=== PATIENT | male | born 1935 | race Caucasian/White ===

== ENCOUNTER 2016-10-05 15:56 | Inpatient (IN) | payer MEDICARE, OTHER ==
--- NOTE | ~2016-10-05 | IDS ---
Interim Discharge Summary [facility] [address] [place]. [address] NAME: EDDIE DELUNA JR : 33 STATUS : [facility]M [facility]#: [id number] AGE: 80 ADM/REG DATE : 10/05/16 MR#: [id number] REPORT SERV DATE: 10/19/16 DICTATED BY: MARCIAL CARDOZO. DATE: 10/19/16 REPORT STATUS : Draft TRANSCRIBED BY: MODRobin DATE: 10/19/16 ADMISSION DATE: 10/05/2016 DISCHARGE DATE: ADDENDUM: Dr. Eddie Escobar. CONSULTING PHYSICIANS: 1. Dr. Quiñones for Cardiology. 2. for Neurology. INTERIM DIAGNOSES: 1. Acute hypoxic and hypercapnic respiratory failure, now intubated again. 2. Seizure disorder. 3. Encephalopathy with history of dementia. 4. Old cerebrovascular accident. 5. Familial tremors. 6. Atrial fibrillation with failed cardioversion. 7. Hypertension. 8. Acute kidney injury on chronic kidney disease 3, status post septic shock, status post flu, status post superimposed bacterial pneumonia. 9. Benign prostatic hyperplasia. 10.Depression. Since my discharge summary done yesterday, the patient had a period of unresponsiveness and was gasping for breath. The patient got an ABG, which shows a pH of 7.14 with pCO2 of 75, and PO2 of 75 in 100% non-rebreather mask. We got Critical Care involved and the patient was intubated and transferred to the CCU. The patient will be continued to be followed by Neurology and further management care of Critical Care people. NIRAV/CARLENE Marcial Cardozo M.D. / [id number] CC: Marcial Cardozo M.D.
--- NOTE | ~2016-10-05 | DS ---
Discharge Summary [facility] [address] [place]. [address] NAME: JO DELUNA JR : 33 STATUS : ADM IN PAT#: [id number] AGE: 81 ADM/REG DATE : 10/05/16 MR#: [id number] REPORT SERV DATE: 10/30/16 DICTATED BY: ELIZA HAYDEN DATE: 10/30/16 REPORT STATUS : Draft TRANSCRIBED BY: MODL DATE: 10/30/16 ADMISSION DATE: 10/05/2016 DISCHARGE DATE: 10/30/2016 DISCHARGE DIAGNOSES: 1. Acute respiratory failure times twice, has been intubated and extubated twice. 2. Acute diastolic dysfunction. 3. Atrial fibrillation. The patient is on rate control and Xarelto use. 4. Dementia with behavior disturbance. 5. Chronic kidney disease, III. 6. Hypertension. 7. Hard of hearing. 8. Obesity. CONSULTANTS: 1. Gibson Quiñones M.D. 2. [facility]. [facility]. [facility]. 4. Dr. Cunningham. HISTORY OF PRESENT ILLNESS: This is an 81-year-old male patient, initially came to the hospital with confusion and agitation, short of breath with the finding of a nonsustained ventricular tachycardia at the very beginning of the September. HOSPITAL COURSE: Please see dictated interim discharge summary done by Dr. Dimas, Dr. Tushar Edwards, and Dr. Paulson. Briefly, I took care of this patient on three days of discharge. The patient was having a prolonged hospitalization with recurrent respiratory failure. He initially came to the hospital with flu-like symptoms. The pneumonia was treated, improved, and also at that time, he was found to be in hypoxic and hypercapnic respiratory failure. He has gone to the ICU twice and was found to have atrial fibrillation with rapid ventricular rate. Next time, he was also having a respiratory failure due to the seizures. The patient stayed in the ICU and extubated and finally transferred out of the ICU. Transfer date was October 23. At that time, the working diagnosis was hypoxic respiratory failure, seizures, and atrial fibrillation with heart failure. After he came out of the ICU, he remains in a quite stable condition. Dr. Quiñones has been following this patient for diastolic dysfunction with right-sided ventricular failure. He has been on Bumex twice a day dosing and his renal function has been stable. Mainly, he is not very cooperative, but he was not having any acute issues for the last four days that I have taken care of this patient. After sometime, intermittent agitation issue, but he was treated with a very very small dose of Ativan and after that, twice a trip to the ICU with respiratory failure, will require mechanical ventilation, patient's family has been informed and discussed regarding this patient's end of care and the code status. The patient has been DNR. He remained on oxygen supply. Discharge Summary [address] [place]. [address] NAME: JO DELUNA JR : 33 STATUS : ADM IN PAT#: [id number] AGE: 81 ADM/REG DATE : 10/05/16 MR#: [id number] REPORT SERV DATE: 10/30/16 DICTATED BY: ELIZA HAYDEN DATE: 10/30/16 REPORT STATUS : Draft TRANSCRIBED BY: MODRobin DATE: 10/30/16 Overall, he had a stable hospitalization. However, the patient has a very poor prognosis with multiorgan failure and a worsening dementia with behavior disturbance. I discussed with the [id number] it is confirmed. Overall, the patient maximized inpatient benefit, will be discharged to nursing facility for rehab. Again, he has a very poor prognosis. DISCHARGE MEDICATIONS: 1. Cogentin 0.25 mg once in the morning time, 0.5 mg once at nighttime. 2. Aricept 10 mg once in the morning time. 3. Digoxin 0.125 mg once a day. 4. Colace 100 mg once a day. 5. Bumex 1 mg twice a day. 6. Xarelto 10 mg twice once a day. 7. Flomax 0.4 mg once a day. 8. Brovana. 9. Pulmicort. 10.DuoNeb. 11.Seroquel was decreased to 6.25 mg once at nighttime. 12.Ultram was discontinued. 13.Melatonin 6 mg once a day. 14.Ativan as needed. 15.Catapres patch once a week. DISPOSITION: The patient is discharged to the nursing facility. Again, he has a very poor prognosis. TIME SPENT: More than 35 minutes on discharge coordination and education. EKL/MODL Eliza Hayden M.D. / [id number] CC: Denisha Fisher PAUL DANIEL
--- NOTE | ~2016-10-05 | OP ---
Record Of Operation [facility] [address] [place]. [address] NAME: JO DELUNA JR : 34 STATUS : ADM IN PAT#: [id number] AGE: 80 ADM/REG DATE : 10/05/16 MR#: [id number] REPORT SERV DATE: 10/19/16 DICTATED BY: TONA PAULSON IV DATE: 10/19/16 REPORT STATUS : Draft TRANSCRIBED BY: MODL DATE: 10/19/16 DATE OF PROCEDURE: 10/19/2016 ENDOSCOPIC INTUBATION NOTE PREOPERATIVE DIAGNOSIS: Hypercapnic hypoxemic respiratory failure. POSTOPERATIVE DIAGNOSIS: Hypercapnic hypoxemic respiratory failure. PROCEDURE: Laryngoscopic intubation with ventilator setup and placement of an orogastric tube. INDICATIONS: Hypercapnic hypoxemic respiratory failure despite 100% FiO2. CONTRAINDICATIONS: None. CONSENT: No consent is obtained to lifesaving procedure. The patient is a full code. FERRY HAND: Tona Paulson M.D. METHOD: The patient was being Ambu bag ventilated when I entered the room. I assumed that responsibility. The patient was tachypneic at that time. All equipment was made available, and the patient was brought to the head of the bed. The O2 saturations improved in the 94% range with the Ambu bag ventilation. The patient was given 20 mg of etomidate because of persistent tone in his jaw muscles. Once the patient was relaxed, a curved laryngoscopic blade was used to visualize the patient's vocal cords. On first pass, an #8 endotracheal tube was advanced through the cords without difficulty under direct visualization. CO2 indicator had appropriate change. There were bilateral breath sounds. The tube was secured at 23 cm. Once the tube was secured, I attempted to place an orogastric tube, it was unsuccessful on the floor, the one was placed in the ICU upon arrival. There was no blood loss with initial; however, there was minimal blood suctioned from his mouth after the tube was secured. There was no persistent bleeding. Estimated blood loss during this time period was about less than 5 mL. The patient otherwise tolerated the procedure well. VENTILATOR SETTINGS: CMV, tidal volume of 550 mL, rate of 12, FiO2 of 100%, PEEP of 5. NM/MODL Tona Paulson IV, M.D. / [id number] CC: Record Of Operation [facility] [address] [place] [address] NAME: JO DELUNA JR : 34 STATUS : ADM IN PAT#: [id number] AGE: 80 ADM/REG DATE : 10/05/16 MR#: [id number] REPORT SERV DATE: 10/19/16 DICTATED BY: TONA PAULSON IV DATE: 10/19/16 REPORT STATUS : Draft TRANSCRIBED BY: MODL DATE: 10/19/16 Tushar Edwards M.D.
--- NOTE | ~2016-10-05 | OP ---
Record Of Operation [facility] [address] [place] [address] NAME: JO DELUNA JR : 34 STATUS : ADM IN PAT#: [id number] AGE: 80 ADM/REG DATE : 10/05/16 MR#: [id number] REPORT SERV DATE: 10/07/16 DICTATED BY: DALLAS WHEATLEY DATE: 10/07/16 REPORT STATUS : Draft TRANSCRIBED BY: MODL DATE: 10/07/16 DATE OF PROCEDURE: PROCEDURE PERFORMED: Left subclavian central venous line placement. INDICATION: Acute hypercapnic hypoxic respiratory failure with hypotension and shock. PROCEDURE IN DETAIL: Procedure was performed emergently in the medical intermediate care unit. The left chest was prepped with chlorhexidine. The patient was completely draped. An arrow triple-lumen kit was used and a left subclavian vein was entered without any difficulty. The triple-lumen catheter was introduced over a guidewire and lines were flushed and catheter was secured in place. The patient tolerated the procedure well. There were no immediate complications. Postprocedure, chest x-ray will be performed for placement. /CARLENE aDllas Wheatley M.D. / [id number] CC: Helen Stevens M.D.
--- NOTE | ~2016-10-05 | IDS ---
Interim Discharge Summary [facility] [address] [place]. [address] NAME: JO DELUNA JR : 34 STATUS : ADM IN PAT#: [id number] AGE: 80 ADM/REG DATE : 10/05/16 MR#: [id number] REPORT SERV DATE: 10/24/16 DICTATED BY: TONA PAULSON IV DATE: 10/23/16 REPORT STATUS : Draft TRANSCRIBED BY: MODRobin DATE: 10/23/16 ADMISSION DATE: 10/05/2016 DISCHARGE DATE: DATE OF TRANSFER TO THE ICU: 10/19/2016. DATE OF TRANSFER BACK TO THE FLOOR: 10/23/2016. DIAGNOSES: At the time of transfer: 1. Hypoxemic respiratory failure and respiratory distress requiring intubation. 2. Transient hypotension. 3. Diastolic heart failure. 4. Atrial fibrillation with rapid ventricular response. 5. Pulmonary infiltrates concerned possibly initially about pneumonia likely secondary to diastolic heart failure. 6. Seizures. 7. Adrenal insufficiency. 8. Dementia. 9. Chronic kidney disease, improved. 10.Electrolyte abnormalities. CONSULTANTS: There were no new consultants; however, Neurology and Cardiology continued to follow the patient throughout the ICU course. PROCEDURE: New procedure was an intubation. CURRENT MEDICATIONS: The patient is on Aricept 10 mg daily, Ativan 0.5 mg at bedtime, Bumex 1 mg twice a day, Cogentin 0.25 mg in the morning and 0.5 mg at bedtime, Colace 100 mg twice a day, Pulmicort 1 mg, and Brovana unit dose twice a day, DuoNeb every four hours while awake and q.4 hours as needed, Flomax 0.4 mg daily, Vimpat 100 mg b.i.d., Keppra 1000 mg b.i.d., potassium 20 mEq daily, digoxin 0.125 mg daily, Lopressor 5 mg every 6 hours, Neurontin 300 mg three times a day, nitroglycerin paste 1 inch q.6 hours, Protonix 40 mg p.o. daily, Seroquel 50 mg at bedtime, hydrocortisone 50 mg q.8 hours, and B12 daily. HOSPITAL COURSE: The patient with a rapid response on the morning of the 10/19/2016 with respiratory distress. He was saturating in the 70% and 80% range on 100% non-rebreather. He underwent intubation and moved to the ICU. He initially had some hypotensive for which he was placed transiently on Levophed. This improved over the ensuing 24 hours, and he was able to be weaned off. When his pressure was improved, we re-initiated Lopressor with improvement of his heart rate. There was further increases in the IV dose and in addition of digoxin with clinical improvement. Because of his worsening renal insufficiency, his Xarelto was held, and he was placed on heparin drip, which has been re-initiated on Xarelto. He was placed on vancomycin and Zosyn for possible healthcare-associated pneumonia. Cultures were all negative and procalcitonin level never modesta for which antibiotics were discontinued after 48 hours. We had discussions with family members, and the patient was made a DNR soon after arrival in the ICU. He had underwent daily weaning trials and was Interim Discharge Summary [address] [address] NAME: JO DELUNA JR : 34 STATUS : ADM IN [facility]#: [id number] AGE: 80 ADM/REG DATE : 10/05/16 MR#: [id number] REPORT SERV DATE: 10/24/16 DICTATED BY: TONA PAULSON IV DATE: 10/23/16 REPORT STATUS : Draft TRANSCRIBED BY: CARLENE DATE: 10/23/16 successfully extubated on the 10/22/2016 with plan not to re-intubate. He is actually clinically done fairly well. Because of a low cortisol level of 10, he was placed on stress dose steroids after his decompensation, and those are slowly being weaned. His kidney disease has stabilized and his infiltrates have improved with control of his atrial fibrillation and gentle diuresis. It was felt that he was stable for transfer back to the floor. BNP proving from 931 to 476. Orders were written on the with hospitalist to resume primary care. SMITHA/CARLENE Tona Paulson IV, M.D. / [id number] CC: Tushar Edwards M.D.
--- NOTE | ~2016-10-05 | EEG ---
Electroencephalogram [facility] [address] [place]. [address] NAME: JO DELUNA JR : 34 STATUS : ADM IN PAT#: [id number] AGE: 80 ADM/REG DATE : 10/05/16 MR#: [id number] REPORT SERV DATE: 10/07/16 DICTATED BY: DATE: REPORT STATUS : Draft TRANSCRIBED BY: MODL DATE: 10/07/16 NEUROLOGY EEG REPORT CLINICAL INDICATION: Shaking, unresponsive state. DESCRIPTION: This EEG was obtained using 10/20 electrode placement system. During the EEG study, the patient was noted to have EEG contaminated by muscle artifact. The patient was noted to have generalized slowing in background activity with predominant occipital rhythm of roughly 4 to 5 hertz, otherwise the patient was not noted to have electrographic seizure during the EEG study. Photic stimulation was performed. No clear photic driving response was seen. Hyperventilation was not performed secondary to the patient's intubation status secondary to the patient being intubated. The patient remains in comatose state during the entire EEG study. During the EEG study, one episode of shaking was captured with no underlying electrographic seizure or brain wave activity changes. No other focal abnormality was noted. No seizure activity was seen during the EEG study. INTERPRETATION: This EEG study obtained entirely during comatose state may be considered abnormal secondary to generalized slowing in the theta range. The patient's EEG study at this time is contaminated with muscle artifact. However no electrographic seizure was seen. No seizure activity or seizure discharge. No focal abnormality was noted. One episode of shivering was captured during the EEG study with no corresponding electrographic seizures or EEG changes. Clinical correlation is recommended. [facility]/MOD Zachery Benavides MD / [id number] CC: Denisha Kellogg
--- NOTE | ~2016-10-05 | CN ---
Consultation Report [facility] [address] [place]. [address] NAME: JO DELUNA JR : 34 STATUS : ADM IN PAT#: [id number] AGE: 80 ADM/REG DATE : 10/05/16 MR#: [id number] REPORT SERV DATE: 10/07/16 DICTATED BY: DATE: REPORT STATUS : Draft TRANSCRIBED BY: MODL DATE: 10/07/16 NEUROLOGY CONSULTATION DATE OF CONSULTATION: 10/07/2016 REASON FOR CONSULT: New onset seizure. HISTORY OF PRESENT ILLNESS: This is an 80-year-old male who presented to [facility] on 10/05/2016 secondary to acute confusion with the patient's family reports the patient was noted to have confusion symptom with disorientation, delusional thoughts, agitation. On 10/03/2016, the patient's baseline, family denies cognitive difficulties and denies any functional difficulties. The patient, the week prior to hospitalization, was noted to have cardiac arrhythmia for which the patient was converted by Cardiology. Since then the patient was noted to have increasing confusion since October 03, 2016, that has not had any significant improvement. Overnight the patient was noted to have hypotension and atrial fibrillation as well as fever, required ICU transfer with the patient being on pressors to maintain blood pressure. The patient was diagnosed with flu and possible CHF exacerbation during the initial hospitalization, otherwise the patient's family reports the patient's daughter in-law was diagnosed with flu recently but otherwise no other sick contact was noted. The patient was noted to have recent change of cardiac medication but otherwise no other changes in his medications. The patient does not have any prior history of seizure and does not have any known family history of seizure according to family members. The patient, this morning, was noted to have shaking episodes, responding to Ativan but will recur. No clear tonic clonic jerk was otherwise noted. REVIEW OF SYSTEMS: Unable to be obtained secondary to the patient's current mental status. PAST MEDICAL HISTORY: Significant for atrial fibrillation, prior history of left cerebellar stroke, benign prostatic hypertrophy, apparent baseline history of dementia although family denies significant cognitive problems prior to the patient's acute confusion, history of peptic ulcer disease, anxiety, depression, neuropathy, Parkinson's disease, chronic kidney disease, urinary tract infection, glaucoma, varicose vein, and nephrolithiasis. ALLERGIES: THE PATIENT WAS NOTED TO HAVE ALLERGIES TO NONSTEROIDAL ANTI-INFLAMMATORY MEDICATIONS WELL TRAMADOL. SOCIAL HISTORY: The patient quit smoking 20 years ago. Denies alcohol or recreational drug usage. FAMILY HISTORY: Significant for heart disease, diabetes, and leukemia. No family history of seizure was otherwise noted. MEDICATIONS: The patient's baseline medications consist of Tylenol; Cogentin; Zebeta; Consultation Report [facility] [id number] [place]. [address] NAME: JO DELUNA JR : 33 STATUS : ADM IN PAT#: [id number] AGE: 80 ADM/REG DATE : 10/05/16 MR#: [id number] REPORT SERV DATE: 10/07/16 DICTATED BY: DATE: REPORT STATUS : Draft TRANSCRIBED BY: MODL DATE: 10/07/16 vitamin B12; Aricept; Flecainide; Neurontin; Ativan; Prilosec; Seroquel 75 mg p.o. at bedtime; Xarelto; Aldactone; Flomax; and Ultram. PHYSICAL EXAMINATION: VITAL SIGNS: Overnight, the patient was noted to have vital signs with T-max of 100.8, heart rate of 81 to 137, respirations of 14 to 28, and blood pressure of 48 to 181 over 28 to 106. GENERAL: The patient is well developed, well nourished, in no acute distress. CARDIOVASCULAR: Tachycardia was otherwise noted. No carotid bruits were auscultated. PULMONARY: Clear to auscultation bilaterally. NEUROLOGIC: The patient was comatose at the time of evaluation. The patient's Precedex was turned off earlier this morning. Otherwise, the patient is unresponsive, nonverbal, not following commands, intubated. Cranial nerves 2 through 12. Pupils pinpoint bilaterally with the patient noted to have no clear horizontal eye movement on oculocephalic maneuver. No [id number]-ue-[id number] response with the patient demonstrating corneal reflex and gag reflex. No clear grimace to noxious stimulation in bilateral jaws. The patient demonstrated no withdrawal grimace or posturing to noxious stimulation. During the examination, the patient started with generalized shaking. No tonic clonic jerking was observed during the evaluation. The patient otherwise was noted to have trace reflexes, downgoing toe on bilateral plantar reflexes. Coordination and gait were unable to be evaluated due to the patient's comatose state. LABORATORY STUDIES: Demonstrated white blood cell count of 5.1, hemoglobin of 11.6, hematocrit of 36.2, and platelet count of 179. Chemistry panel: Sodium 142, potassium 4.7, chloride 105, bicarb 25, BUN of 29, creatinine of 2.35, glucose of 119, and calcium was 7.8. The patient was noted to have ABG this morning of 7.28, pCO2 of 53, PO2 of 226, bicarb of 23.1, and O2 saturation of 99.4. CT scan of the brain obtained on 10/05/2016, demonstrated previous right frontal and right parietal stroke and old left cerebellar stroke. No acute process was otherwise noted. IMPRESSION: 1. Encephalopathy with symptoms of delusion and confusion since 10/03/2016. The patient was noted to be febrile with new onset seizure with the patient carrying dementia but no significant memory deficits according to the family members. Given the patient's new onset seizure and with persistent worsening encephalopathy, we will obtain stat EEG. We are recommending holding Xarelto and obtaining lumbar puncture by Radiology. Meanwhile we will cover the patient with vancomycin and Zosyn as well as acyclovir. 2. New onset seizure. So we will start the patient on Keppra 1000 mg IV q.12 hours as well as obtain stat EEG for evaluation. We will also obtain lumbar puncture. RECOMMENDATIONS: 1. Keppra 1000 mg IV b.i.d. 2. Stat EEG. 3. Procalcitonin level. 4. Vancomycin, pharmacy to dose. 5. Zosyn, pharmacy to dose. Consultation Report [address] [place]. [address] NAME: REGIJO HANANE GONZALEZ : 33 STATUS : ADM IN [facility]#: [id number] AGE: 80 ADM/REG DATE : 10/05/16 MR#: [id number] REPORT SERV DATE: 10/07/16 DICTATED BY: DATE: REPORT STATUS : Draft TRANSCRIBED BY: MODL DATE: 10/07/16 6. Acyclovir 10 mg/kg IV t.i.d. 7. Lumbar puncture by Radiology. 8. CSF for protein, glucose, cell count with differential, HSV PCR, cryptococcal antigen, bacterial culture, Gram stain. 9. Solu-Medrol 125 mg IV b.i.d., first dose prior to IV antibiotics. 10.We are recommending holding Xarelto for lumbar puncture. CCH/MODL Zachery Benavides MD / [id number] CC: Denisha Kellogg
--- NOTE | ~2016-10-05 | CN ---
Consultation Report [facility] [address] [place]. [address] NAME: JO DELUNA JR : 34 STATUS : ADM IN PAT#: [id number] AGE: 80 ADM/REG DATE : 10/05/16 MR#: [id number] REPORT SERV DATE: 10/08/16 DICTATED BY: JAH CUNNINGHAM DATE: 10/08/16 REPORT STATUS : Draft TRANSCRIBED BY: MODL DATE: 10/08/16 INFECTIOUS DISEASE CONSULTATION DATE OF CONSULTATION: 10/08/2016 REASON FOR CONSULTATION: Sepsis. HISTORY OF PRESENT ILLNESS: This is an 80-year-old man with a past medical history notable for atrial fibrillation, for which he underwent cardioversion around 09/29. He also has a history of strokes and some dementia, although remains fairly active and still drives. There is a history of chronic kidney disease and apparently Parkinson disease. The patient was admitted to the hospital on 10/05 after presenting to the emergency department that afternoon with progressively worsening mental status. About a week ago, he had started developing some cough and shortness of breath and actually, his osgvrdhi-pa-pkn had been diagnosed with influenza also. He then became progressively more delirious and agitated and in the emergency department, was found to have initially a white blood cell count of 4500, mildly elevated lactate level, and had a positive screen for influenza A. He did develop a fever up to 100.8 on 10/06. He was treated with Tamiflu. His initial chest x-ray was negative and he also had a CT scan of the abdomen and pelvis, which was unremarkable including the lung bases. A CT scan of the brain just showed old infarcts. The patient though worsened overnight on 10/06 and was transferred to the intensive care unit and was intubated and had fevers up to 101.5 yesterday. He also required institution of pressors. The patient was evaluated by Neurology and underwent lumbar puncture yesterday, which showed no evidence of a central nervous system infection. Antibiotics were broadened to include vancomycin and Zosyn yesterday. He remains on the ventilator, FiO2 of 40%. The patient was given Solu-Medrol yesterday, but this was stopped this morning. His procalcitonin yesterday was 1.10. The patient's ssstlhxk-pn-yto says that he received influenza vaccination when he underwent the cardioversion at the end of August. PAST MEDICAL HISTORY: In addition to the above is notable for peptic ulcer disease, gastroesophageal reflux, glaucoma and surgeries to include multiple orthopedic procedures and partial colectomy for a benign tumor and a TURP and right carotid endarterectomy. ALLERGIES: NONSTEROIDAL ANTI-INFLAMMATORY DRUGS AND TRAMADOL. PRESENT MEDICATIONS: In addition to the antibiotics mentioned include Cogentin, vitamin B12, Aricept, Neurontin, Ativan, Protonix, Seroquel, Flomax, and Keppra (I should note the patient was felt to have some seizures on the day that he deteriorated and this is what initially prompted the Neurology evaluation). SOCIAL HISTORY: As above. He has a past smoking history. Nondrinker. He lives with his . Son and cgtjeyzd-mu-ify live across the street. FAMILY HISTORY: Notable for diabetes and heart disease. Consultation Report [address] [place]. [address] NAME: JO DELUNA JR : 34 STATUS : ADM IN [facility]#: [id number] AGE: 80 ADM/REG DATE : 10/05/16 MR#: [id number] REPORT SERV DATE: 10/08/16 DICTATED BY: JAH CUNNINGHAM DATE: 10/08/16 REPORT STATUS : Draft TRANSCRIBED BY: CARLENE DATE: 10/08/16 REVIEW OF SYSTEMS: As outlined above. Otherwise, negative or difficult to obtain at the present time. PHYSICAL EXAMINATION: VITAL SIGNS: The patient weighs 98 kg. He is presently afebrile. He has had hypotension earlier this morning and is back on vasopressin after being off pressors earlier in the evening. Pulse is 112. HEAD AND NECK: Other than his intubated status is unremarkable, although I cannot examine the oral cavity. LUNGS: Actually fairly clear to auscultation anteriorly and laterally. CARDIAC: Shows a tachycardic rate and regular rhythm. Normal S1 and S2. No murmur, gallop, or rub. CHEST: Reveals a left subclavian central line placed early on 10/07, covered by dressing. ABDOMEN: Nondistended, quiet, soft and no evident tenderness to palpation or masses. EXTREMITIES: Reveal a PICC line in the right upper extremity. No rash. No edema. SKIN: Without rash elsewhere. LABORATORY STUDIES: White blood cell count today is 17.8 after steroids yesterday, but with 43% bands; hemoglobin 11.4; platelets 156. Creatinine 2.52, it was 2.05 on admission, baseline appears to be around 1.4 to 1.6. Albumin 2.4, liver function tests normal. Most recent blood gas shows a pH of 7.31, pCO2 of 41, PO2 of 80 on 50% FiO2. Lumbar puncture negative as mentioned above. Microbiology studies show that his admission urinalysis was negative. Influenza screen positive for influenza A. Sputum Gram stain from yesterday after intubation shows greater than 100 white blood cells, many gram-positive cocci in pairs. Culture has some very early growth of a beta-hemolytic colony, possibly strep. Blood cultures are negative to date. Serial chest x-rays are reviewed. Today's chest x-ray shows minimal bibasilar atelectasis, left greater than right, and pulmonary vascular prominence. IMPRESSION: Severe sepsis secondary to acute influenza A with possible secondary bacterial infection. His chest x-rays are not that impressive, but he could be developing a bacterial pneumonia, and the sputum Gram stain is purulent and culture does have very early growth of strep or staph organism most likely. I do not see any other likely source of a secondary bacterial infection. PLAN: 1. Pending sputum culture results, we will continue the vancomycin and Zosyn along with Tamiflu. 2. We will discontinue the subclavian line when it is no longer needed and discussed this with the nursing staff. /MODL Consultation Report [place] [id number] [facility] [place]. [address] NAME: JO DELUNA : 34 STATUS : ADM IN [facility]#: [id number] AGE: 80 ADM/REG DATE : 10/05/16 MR#: [id number] REPORT SERV DATE: 10/08/16 DICTATED BY: JAH CUNNINGHAM DATE: 10/08/16 REPORT STATUS : Draft TRANSCRIBED BY: MODRobin DATE: 10/08/16 Jah Cunningham M.D. / [id number] CC: Denisha Kellogg Paul Daniel
--- NOTE | ~2016-10-05 | IDS ---
Interim Discharge Summary [facility] [address] [place]. [address] NAME: EDDIE DELUNA JR : 34 STATUS : ADM IN PAT#: [id number] AGE: 80 ADM/REG DATE : 10/05/16 MR#: [id number] REPORT SERV DATE: 10/18/16 DICTATED BY: MARCIAL CARDOZO DATE: 10/18/16 REPORT STATUS : Draft TRANSCRIBED BY: MODL DATE: 10/18/16 ADMISSION DATE: 10/05/2016 DISCHARGE DATE: PRIMARY CARE PHYSICIAN: Dr. Eddie Escobar. CONSULTING PHYSICIAN: Dr. Ishmael BELTRE for Cardiology. Dr. Radha Leal for Neurology. ID, Renal and Critical Care have signed off. INTERIM DIAGNOSES: 1. Seizures. 2. Encephalopathy with history of dementia, old cerebrovascular accident. 3. Familial tremors. 4. Acute hypoxic and hypercapnic respiratory failure, status post extubation. 5. Atrial fibrillation with failed cardioversion. 6. Hypertension. 7. Acute kidney injury on chronic kidney disease 3. 8. Status post septic shock. 9. Status post flu. 10.Status post superimposed bacterial pneumonia. 11.Benign prostatic hypertrophy. 12.Depression. DIAGNOSTIC EXAMS: MRI of the brain showing moderate atrophy; chronic white matter ischemic change; small cortical infarcts in the right frontal lobe, occipital lobe, parietal lobe; but no acute infarct or hemorrhage. Sinusitis and bilateral mastoid inflammation. Latest chest x-ray showing stable aeration, status post extubation; minimal residual atelectasis at the lung base. KUB, no evidence of acute abnormality within the abdomen. HOSPITAL COURSE: Please refer to the H and P done by Dr. Mosqueda on 10/06/2016, the interim discharge summary done by Dr. Dimas on 10/09/2016. Since the patient got transferred out of the intensive care unit, the patient has been having on and off confusion. According to the family, he has a baseline dementia and this is more or less how he is. He sometimes willingly not take his medication and he is impulsive. He is slowly being weaned off his oxygen, and he completed treatment for the possible superimposed bacterial pneumonia, and completed treatment for the flu. However, as we were trying to decrease the Keppra for a possible myoclonus, the patient had a witnessed seizure on his right upper extremity. The initial EEG did not show any seizures, and he got a second EEG, which has not been read. The patient was placed back on IV Keppra and has not been having any seizures anymore. Meanwhile, his p.o. intake has been erratic and we had to crush the medications and sneak it up to him. Because of this, he might not be getting his full dose of the metoprolol, and we have to supplement it through the IV. Meanwhile, ID and Critical Care have signed off, and we have Cardiology still helping us with the atrial fibrillation as he had failed cardioversion on this admission. Neuro initially signed off, but we reconsulted them for this, and they are still under investigation on the source of the seizures. Partner of [facility] will be following up the patient on Wednesday. Interim Discharge Summary [address] [address] NAME: EDDIE DELUNA JR : 34 STATUS : ADM IN [facility]#: [id number] AGE: 80 ADM/REG DATE : 10/05/16 MR#: [id number] REPORT SERV DATE: 10/18/16 DICTATED BY: MARCIAL CARDOZO DATE: 10/18/16 REPORT STATUS : Draft TRANSCRIBED BY: CARLENE DATE: 10/18/16 NIRAV/CARLENE Marcial Cardozo M.D. / [id number] CC: Deinsha Welch M.D.
--- NOTE | ~2016-10-05 | EEG ---
Electroencephalogram [place] [address] [place]. [address] NAME: JO DELUNA JR : 34 STATUS : ADM IN PAT#: [id number] AGE: 80 ADM/REG DATE : 10/05/16 MR#: [id number] REPORT SERV DATE: 10/19/16 DICTATED BY: LOC CANTU DATE: 10/19/16 REPORT STATUS : Draft TRANSCRIBED BY: MODL DATE: 10/19/16 LOCATION OF THE PATIENT: Room 7111. DESIGNATED REVIEWER: Loc Cantu MD. EEG NUMBER: [id number]. REASON FOR EEG: Episode of a seizure. The patient was given 2 mg of Ativan prior to the EEG. Right arm twitching and change in mental status. This study was reviewed and information was given to the treating team on 10/16/2016, the date of study. Twenty-three surface electrodes, 10-20 international placement was used. The patient was noted to be restless and drowsy throughout the study. The background activity showed moderate to lower voltage, poorly organized 6-7 cycles per second scattered throughout. Overall, no significant asymmetry of cerebral activity was present. Intermittent slower frequency seen in temporal regions were asynchronous. The patient's drywall taper showed possible atrial fibrillation, irregularly irregular. Heart rate of approximately 85 to 90 beats per minute. Large amount of beta range activity was also noted, which may represent a medication effect. Video monitor revealed the patient to be restless and not following commands well. IMPRESSION: ABNORMAL EEG CHARACTERIZED BY PRESENCE OF DIFFUSE SLOWING OF CEREBRAL ACTIVITY. NO TRUE FOCAL OR EPILEPTIFORM ACTIVITY WAS SEEN DURING THIS STUDY. THIS EEG MAY REPRESENT DIFFUSE CEREBRAL DYSFUNCTION. DIFFERENTIAL DIAGNOSIS INCLUDES A POSTICTAL STATE. CLINICAL CORRELATION IS RECOMMENDED. THUY/CARLENE Loc Cantu MD / [id number] CC: Tushar Edwards M.D.
--- NOTE | ~2016-10-05 | HP ---
History And Physical [place] [id number] [facility] [place]. [address] NAME: JO DELUNA JR : 34 STATUS : ADM IN PAT#: [id number] AGE: 80 ADM/REG DATE : 10/05/16 MR#: [id number] REPORT SERV DATE: 10/06/16 DICTATED BY: ANGELINA BEY DATE: 10/06/16 REPORT STATUS : Draft TRANSCRIBED BY: MODRobin DATE: 10/06/16 DATE OF ADMISSION: 10/05/2016 CHIEF COMPLAINT: An 80-year-old male, presenting with agitation, confusion, shortness of breath, and episode of prolonged but nonsustained ventricular tachycardia. HISTORY OF PRESENT ILLNESS: The patient's history was obtained through careful interview with the patient and son coupled with [facility] and [facility] medical records. The patient had atrial fibrillation requiring a cardioversion just a week prior to admission. Ever since being discharged home, he has never quite recovered. He has had coughing paroxysms that are quite severe and increasing shortness of breath characterized by dyspnea on exertion. But then over the last three days, he has become increasingly delirious and agitated and quite combative at times. He has been mumbling and incoherent. Finally, the family knew that he had to come to the hospital for further evaluation and stabilization. The patient describes a bloating of his abdomen but denies actual pain though he does describe back and knee pain. A few weeks ago, he had fallen, and it exacerbated his chronic back and knee pain. No nausea or vomiting. No diarrhea. No fevers or chills have been documented. While being evaluated in the Emergency Department, he had documented 112 beats of ventricular tachycardia, but it subsided spontaneously. REVIEW OF SYSTEMS: Otherwise, complete review of systems was obtained and was negative, although would question validity in light of the patient's inability to answer for himself as this review of systems was obtained through his son. PAST MEDICAL HISTORY: 1. Atrial fibrillation, followed by Dr. Ruvalcaba. 2. Stroke, left cerebellar. 3. Benign prostatic hypertrophy. 4. Dementia. 5. Peptic ulcer disease, gastroesophageal reflux disorder, and esophageal dilatation. 6. Anxiety and depression. 7. Neuropathy. 8. Parkinson disease. 9. Chronic kidney disease, stage III. Baseline creatinine of 1.2-1.6. 10.Urinary tract infection. 11.Glaucoma. 12.Varicose veins. History And Physical [address] [place]. [address] NAME: JO DELUNA JR : 34 STATUS : ADM IN PAT#: [id number] AGE: 80 ADM/REG DATE : 10/05/16 MR#: [id number] REPORT SERV DATE: 10/06/16 DICTATED BY: ANGELINA BEY DATE: 10/06/16 REPORT STATUS : Draft TRANSCRIBED BY: CARLENE DATE: 10/06/16 13.Nephrolithiasis. PAST SURGICAL HISTORY: 1. Lumbar spine surgery. 2. Right knee surgery x5. 3. Colectomy for a benign tumor. 4. Right carotid endarterectomy. 5. TURP. ALLERGIES: NONSTEROIDAL ANTI-INFLAMMATORY DRUGS AND TRAMADOL. SOCIAL HISTORY: Quit smoking more than 20 years ago. He does not drink any alcohol. He is . His is in fair condition. He has one son who lives "across the street." He is retired from the [employer] in [place], [place]. He is on disability. He ambulates with a walker. He used to work as a administrative office clerk. FAMILY HISTORY: Brother with heart disease. Father with diabetes. Mother with leukemia. CURRENT MEDICATIONS: Include Tylenol, Cogentin 0.25 mg p.o. daily and 0.5 mg at bedtime, bisoprolol 10 mg p.o. daily, vitamin B12, Aricept 10 mg p.o. daily, flecainide 50 mg p.o. b.i.d., Neurontin 300 mg p.o. t.i.d., Ativan 1 mg at bedtime, Prilosec 20 mg p.o. daily, Seroquel 75 mg daily p.o. daily, Xarelto 10 mg at bedtime, Aldactone 25 mg p.o. daily, Flomax 0.4 mg p.o. daily, and tramadol p.r.n. PHYSICAL EXAMINATION: VITAL SIGNS: Temperature 98.4, pulse 60, blood pressure 180/81, respiratory rate 23, and O2 saturation 95% on room air. GENERAL: A toxic-appearing male, in evidence of distress secondary to his delirium and illness. HEENT: Pupils equal, round, and reactive to light. No conjunctival pallor. No scleral icterus. Nares are patent. Oropharynx is clear of obstruction. Moist mucous membranes. NECK: Trachea midline. No thyromegaly. LYMPH: No cervical lymphadenopathy. No supraclavicular lymphadenopathy. RESPIRATORY: The patient has wet rales on examination that predominate. No wheezes. He has a quite labored respiratory effort. CARDIOVASCULAR: Regular rate and rhythm. No murmurs, rubs, or gallops at this time. He does have pitting lower extremity edema around his ankles and shins that is symmetric. ABDOMEN: Soft, nontender, nondistended. Normal bowel sounds auscultated throughout. No organomegaly. DERMATOLOGICAL: Warm and dry extremities, no pallor, no cyanosis. PSYCHIATRIC: Quite agitated affect and mood. Disoriented x3. LABORATORY DATA: Influenza came back positive. Ammonia level 49. Lactic acid 2.4. Lipase 104. Troponin negative. Brain natriuretic peptide 827. Liver enzymes within normal limits. White blood cell count 4.5, hemoglobin 12, hematocrit 39, and platelets 195. Sodium 139, potassium 4.8, chloride 106, bicarb 25, BUN 29, creatinine 2.05, glucose 78. Urinalysis negative for infection. History And Physical [address] [address] NAME: JO DELUNA JR : 34 STATUS : ADM IN [facility]#: [id number] AGE: 80 ADM/REG DATE : 10/05/16 MR#: [id number] REPORT SERV DATE: 10/06/16 DICTATED BY: ANGELINA BEY DATE: 10/06/16 REPORT STATUS : Draft TRANSCRIBED BY: CARLENE DATE: 10/06/16 STUDIES: 1. Chest x-ray by my own evaluation shows cardiomegaly, congestion. 2. CT scan of the brain without contrast shows no acute intracranial process. ASSESSMENT AND PLAN: 1. Congestive heart failure exacerbation. Check an echocardiogram to define function. Place on IV diuretic, JESSICA inhibitor, beta elizabeth. 2. Nonsustained ventricular tachycardia. Start beta elizabeth. Obtain a Cardiology consult. The patient had a run of 112 beats of ventricular tachycardia. 3. Acute kidney injury on chronic kidney disease, stage III. Place Mart catheter. Monitor. 4. Severe encephalopathy. Negative CT scan of the brain. Provide supportive care. The patient has baseline dementia. 5. Paroxysmal atrial fibrillation, on Xarelto. 6. Influenza. Start Tamiflu. KPL/MODL Angelina Bey M.D. / [id number] CC: Denisha Kellogg
--- NOTE | ~2016-10-05 | IDS ---
Interim Discharge Summary [facility] [address] [place]. [address] NAME: JO DELUNA JR : 34 STATUS : ADM IN PAT#: [id number] AGE: 80 ADM/REG DATE : 10/05/16 MR#: [id number] REPORT SERV DATE: 10/09/16 DICTATED BY: WILLOW DIMAS DATE: 10/09/16 REPORT STATUS : Draft TRANSCRIBED BY: MODL DATE: 10/09/16 ADMISSION DATE: 10/05/2016 DISCHARGE DATE: DATE OF TRANSFER TO THE ICU: 10/07/2016. DATE OF INTERIM SUMMARY: 10/09/2016. INTERIM DIAGNOSES: 1. Acute hypoxic and hypercapnic respiratory failure. 2. Influenza A. 3. Bacterial pneumonia. 4. Septic shock. 5. Acute metabolic encephalopathy. 6. Atrial fibrillation with rapid ventricular response. 7. Acute renal failure. ICU COURSE: Please see dictated H and P for full presentation of the patient's history. BRIEF SUMMARY: The patient is an 80-year-old gentleman with past medical history of dementia, Parkinson disease, and paroxysmal atrial fibrillation, status post cardioversion back on 09/29/2016, who was initially admitted to the Hospitalist Service with influenza A and altered mental status. The patient decompensated from a respiratory standpoint on 10/07/2016 and had to be intubated for hypercapnic and hypoxic respiratory failure. Since that time, his ICU course has been complicated by septic shock, acute renal failure, worsening encephalopathy, and atrial fibrillation with rapid ventricular response. 1. Acute hypoxic and hypercapnic respiratory failure. The patient initially was having difficulty oxygenating, though now is doing much better. He has been weaned down to minimal ventilator settings. We should be starting CPAP trial soon when his mental status and shock improve. 2. Influenza A with potential superimposed bacterial pneumonia. Infectious Disease is following along with us. He is currently on Tamiflu and we started broad-spectrum antibiotics with vancomycin and Zosyn for possible superimposed bacterial pneumonia. Currently, his sputum culture has some gram-positive cocci in pairs. We will continue to follow this. Continue current antibiotics for now. 3. Septic shock. The patient has been requiring both Levophed and vasopressin, though now the Levophed is off. He remains just on vasopressin. We will attempt to wean this off today. 4. Acute metabolic encephalopathy. The patient initially was not following commands and having myoclonus when he first came over to the ICU. Neurology was consulted. We did an LP, which was unremarkable and EEG, which showed no seizure activity. Since then, he has improved and today is actually waking up and following commands. Neurology will continue to follow along. We will continue Keppra for now just for symptom control. 5. Atrial fibrillation with rapid ventricular response. The patient initially had very difficult to control atrial fibrillation, which was refractory to amiodarone and required cardioversion again on the morning of 10/07/2016. [facility] has been consulted and Interim Discharge Summary [place] [address] [address] NAME: JO DELUNA JR : 34 STATUS : ADM IN PAT#: [id number] AGE: 80 ADM/REG DATE : 10/05/16 MR#: [id number] REPORT SERV DATE: 10/09/16 DICTATED BY: WILLOW DIMAS DATE: 10/09/16 REPORT STATUS : Draft TRANSCRIBED BY: MODRobin DATE: 10/09/16 is following along with us. His atrial fibrillation has been better controlled since cardioversion. He was briefly in sinus rhythm, but is now back in atrial fibrillation. Cardiology is stopping his amiodarone drip today and will use esmolol for rate control should he go into RVR again. We are also restarting his home Xarelto today for prophylaxis. 6. Acute renal failure. Renal is following. He did develop some acute renal failure likely ATN secondary to shock. Currently, he is still making urine. His creatinine is elevated, but stable and slowly trending down. The patient remains critically ill in the ICU. The oncoming health club manager will assume his care. Please call if you have any questions. TAD/CARLENE Willow Dimas MD / [id number] CC: Denisha Kellogg PAUL DANIEL
--- NOTE | ~2016-10-05 | CN ---
Consultation Report [facility] [address] [place]. [address] NAME: JO DELUNA JR : 34 STATUS : ADM IN PAT#: [id number] AGE: 80 ADM/REG DATE : 10/05/16 MR#: [id number] REPORT SERV DATE: 10/08/16 DICTATED BY: LUKE FISCHER DATE: 10/08/16 REPORT STATUS : Draft TRANSCRIBED BY: MODL DATE: 10/08/16 CONSULTATION DATE OF CONSULTATION: 10/08/2016 TIME: 12 noon. REASON FOR CONSULTATION: Acute kidney injury. ASSESSMENT: Nonoliguric acute on chronic kidney disease. An 80-year-old male with significant comorbidity with underlying respiratory failure with influenza A, new onset seizures, and shock associated with atrial fibrillation requiring cardioversion. I suspect he has acute tubular necrosis. In addition, his output has been greater than his intake, suggesting it could be a component of volume depletion as well associated with his worsening renal function. PLAN: 1. Place on normal saline at 50 an hour although his BNP is elevated, I suspect he is intravascularly volume depleted. 2. Check his urine chemistries and repeat urinalysis. 3. Adjust his medications for GFR less than 20. Serial labs and also check a CPK in the morning to ensure that there is no developing rhabdomyolysis. HISTORY OF PRESENT ILLNESS: He is an 80-year-old male who presented to the hospital on 10/06/2016, having developed some agitation, confusion, and shortness of breath on the day of admission. History apparently was obtained by the son. He was seen in the ER by Dr. Navi Mosqueda. The patient with history of atrial fibrillation had actually been cardioverted the week before. Subsequently, it was felt that he had a component of congestive heart failure and therefore was placed on diuretics and his creatinine was elevated and it was felt that he had acute on chronic kidney disease and severe encephalopathy and therefore admitted to the ICU. It is noted that he also had influenza and was started on Tamiflu. Subsequently he had a decline in his overall condition with the atrial fibrillation and associated seizures with hypotension. He had to be cardioverted, subsequently intubated and subsequently the patient has now developed worsening kidney dysfunction. PAST MEDICAL HISTORY: 1. Atrial fibrillation. 2. History of CVA. 3. Benign prostatic enlargement. 4. Peptic ulcer disease. 5. Parkinson's disorder. 6. CKD 3 with creatinine of 1.2 to 1.6 as described. 7. History of recurrent urinary tract infections. 8. History of glaucoma and nephrolithiasis. Consultation Report [address] [place]. [address] NAME: JO DELUNA JR : 34 STATUS : ADM IN PAT#: [id number] AGE: 80 ADM/REG DATE : 10/05/16 MR#: [id number] REPORT SERV DATE: 10/08/16 DICTATED BY: LUKE FISCHER DATE: 10/08/16 REPORT STATUS : Draft TRANSCRIBED BY: CARLENE DATE: 10/08/16 9. Previous lumbar spine surgery. 10.Right knee procedures x5. 11.Partial colectomy for benign tumor. 12.History of carotid endarterectomy and TURP. FAMILY HISTORY: Brother has underlying heart disease. No documented history of end-stage renal failure in the parents. SOCIAL HISTORY: Distant history of smoking. No alcohol, medication, or street drug usage. Lives with his and good family support. ALLERGIES: NSAIDS AND TRAMADOL. HOME MEDICATIONS: Acetaminophen; Cogentin; Bisoprolol; vitamin B12; Aricept; flecainide; gabapentin; Ativan; omeprazole; Seroquel; Xarelto; Aldactone; tamsulosin; and tramadol. REVIEW OF SYSTEMS: As per the HPI. PHYSICAL EXAMINATION: GENERAL: He is currently intubated and sedated and in no acute distress. VITAL SIGNS: His blood pressure has been running in the 100s to 130s over 60s. He is on vasopressin at this time. His temperature is 101.5 as of this morning. Heart rate is in the 100s. He is currently sinus tachycardia. HEENT: His pupils are reacting to light. He is not pale. He has no jaundice. ENT, he is intubated orally. He has an NG tube. NECK: Supple. No thyromegaly. No carotid bruits heard. Air entry is equal bilaterally. CHEST: Clear to auscultation. Stow beats not displaced. S1, S2. No rub. ABDOMEN: Mild distention. No hepatosplenomegaly. No tenderness, guarding, or rebound. EXTREMITIES: He has no peripheral edema. Peripheral pulses and dorsalis pedis are present. He has actually loss of skin turgor. No rash noted. : Indwelling Mart catheter placed. NEUROLOGICAL: Exam cannot be performed. Muscle bulk and tone are appropriate for age. No acute arthritic findings noted. LABORATORY DATA: His lab work shows him to have sodium of 136, potassium 4.2, chloride 101, CO2 of 21, BUN 39, creatinine 2.52, mag is 1.2 and has been replaced, phosphorus 8.2, hemoglobin is 11.4, hematocrit 35.4, white count 17.8, platelet count 156,000. His urinalysis showed leukocyte esterase was small and he had no documented pyuria or proteinuria. His CT scan of his abdomen and pelvis that was done during this admission shows kidneys appear lobulated but they are not obstructed. They may have an exophytic cyst on 1 of the kidneys but there was no underlying obstructive disease. Some trace pelvic free fluid was noted. His chest x-ray shows some mild increase in pulmonary vascular congestion but this rate is lack of inspiratory effort. Consultation Report [address] [place]. [address] NAME: REBECCAAlirioJO JR : 34 STATUS : ADM IN PAT#: [id number] AGE: 80 ADM/REG DATE : 10/05/16 MR#: [id number] REPORT SERV DATE: 10/08/16 DICTATED BY: LUKE FISCHER DATE: 10/08/16 REPORT STATUS : Draft TRANSCRIBED BY: CARLENE DATE: 10/08/16 /CARLENE Luke Fischer M.D. / [id number] CC: Denisha Kellogg
--- NOTE | ~2016-10-05 | CN ---
Consultation Report [facility] [address] [place]. [address] NAME: JO CHRISTENSEN JR : 34 STATUS : ADM IN PAT#: [id number] AGE: 80 ADM/REG DATE : 10/05/16 MR#: [id number] REPORT SERV DATE: 10/06/16 DICTATED BY: PINEDA QUIÑONES DATE: 10/06/16 REPORT STATUS : Draft TRANSCRIBED BY: MODL DATE: 10/06/16 CARDIOLOGY CONSULTATION DATE OF CONSULTATION: 10/06/2016 REASON FOR CONSULTATION: Suspected nonsustained ventricular tachycardia and acute congestive heart failure, not otherwise specified in an 80-year-old man with a history of paroxysmal atrial fibrillation. HISTORY OF PRESENT ILLNESS: Mr. Christensen is an 80-year-old man, who is seen by Dr. Ruvalcaba for the history of paroxysmal atrial fibrillation. The patient apparently has been treated on flecainide in the past, though this was discontinued as the patient had remained in sinus rhythm for many months. The patient was, however, readmitted to the hospital recently on 09/29/2016 with recurrent paroxysmal atrial fibrillation. The patient was on Xarelto chronically. He was cardioverted without incident at that time. The patient has apparently been readmitted with a several-day history of shortness of breath, altered mental status, and possibly abdominal swelling. The patient was brought to [facility] Emergency Room for further evaluation. He has been admitted for management of respiratory failure and altered mental status. Of note, the patient was found to have a positive influenza type A screen. At this time, the patient is minimally arousable to noxious stimuli. He is unable to provide any useful history. History is obtained from the medical chart. There was concern regarding a rhythm on the batch and furnace manager noted in the emergency room, which was felt to be consistent with nonsustained ventricular tachycardia. According to the nursing staff, the patient remained hemodynamically stable during his arrhythmia and no CPR was necessary. PAST MEDICAL HISTORY: 1. Paroxysmal atrial fibrillation. 2. Left cerebellar stroke. 3. Benign prostatic hypertrophy. 4. Multifactorial dementia. 5. Peptic ulcer disease and gastroesophageal reflux disease. 6. Anxiety/depression. 7. Parkinson disease. 8. Neuropathy. 9. Stage 3 chronic kidney disease with a baseline creatinine of 1.2 to 1.6. 10.Chronic urinary tract infections. 11.Glaucoma. 12.Venous insufficiency. 13.Nephrolithiasis. PAST SURGICAL HISTORY: 1. Lumbar spine surgery. Consultation Report [facility] [address] [place] [address] NAME: JO CHRISTENSEN JR : 34 STATUS : ADM IN PAT#: [id number] AGE: 80 ADM/REG DATE : 10/05/16 MR#: [id number] REPORT SERV DATE: 10/06/16 DICTATED BY: PINEDA QUIÑONES DATE: 10/06/16 REPORT STATUS : Draft TRANSCRIBED BY: CARLENE DATE: 10/06/16 2. Right knee procedures x5. 3. Partial colectomy for benign tumor. 4. Right carotid endarterectomy. 5. Transurethral resection of the prostate. FAMILY HISTORY: The patient does have a brother with heart disease; however, there is no documentation of early family history of coronary heart disease or sudden cardiac . SOCIAL HISTORY: The patient has a distant smoking history. He has no known history of alcohol or drug use. He is and lives at home with his . The patient's son lives across the street. He ambulates with a walker. ALLERGIES: THE PATIENT HAS DOCUMENTED ADVERSE REACTIONS TO NSAIDS AND TRAMADOL. HOME MEDICATIONS: 1. Acetaminophen 500 mg p.o. three times daily as needed for pain. 2. Cogentin 0.25 mg p.o. q.a.m. and 0.5 mg p.o. at bedtime. 3. Bisoprolol 10 mg p.o. q.a.m. 4. Vitamin B12, 1000 mcg sublingual daily. 5. Aricept 10 mg p.o. q.a.m. 6. Flecainide 50 mg p.o. q.12 hours. 7. Gabapentin 300 mg p.o. three times daily. 8. Ativan 1 mg p.o. q.h.s. 9. Omeprazole 20 mg p.o. q.a.m. 10.Seroquel 75 mg p.o. q.h.s. 11.Xarelto 10 mg p.o. q.h.s. 12.Aldactone 25 mg p.o. q.a.m. 13.Tamsulosin 0.4 mg p.o. q.a.m. 14.Tramadol 50 mg p.o. q.h.s. as needed for pain. REVIEW OF SYSTEMS: The patient is unable to provide a meaningful review of systems at this time. PHYSICAL EXAMINATION: VITAL SIGNS: Temperature is 100.3 degrees Fahrenheit, blood pressure is 132/78 mmHg, heart rate is 65 beats per minute and regular, respirations 20, oxygen saturation is 95% on 3 L nasal cannula. CONSTITUTIONAL: The patient is an elderly white man, who currently is minimally responsive to noxious stimuli, though he does not appear to be in acute respiratory distress. EYES: PERRL, EOMI, clear conjunctiva. HEAD/MNT: NCAT with moist mucous membranes and grossly normal hard and soft palate. NECK: Supple with no obvious thyromegaly or lymphadenopathy. CARDIOVASCULAR: The exam is somewhat limited due to respiratory noise. A faint systolic murmur cannot be excluded; however, there is a regular rhythm with a normal S1 and a physiologically split second heart sound. No significant rubs or gallops are noted. The Consultation Report [address] [address] NAME: JO CHRISTENSEN : 34 STATUS : ADM IN [facility]#: [id number] AGE: 80 ADM/REG DATE : 10/05/16 MR#: [id number] REPORT SERV DATE: 10/06/16 DICTATED BY: PINEDA QUIÑONES DATE: 10/06/16 REPORT STATUS : Draft TRANSCRIBED BY: CARLENE DATE: 10/06/16 jugular venous pressure is not able to be estimated due to respiratory variation and lack of patient cooperation. PULMONARY: There are extensive transmitted upper airway sounds making pulmonary exam difficult. No obvious rales or dullness to percussion is noted. There is a slight expiratory wheeze noted. ABDOMINAL: Soft, non-tender, non-distended with no hepatosplenomegaly noted. EXTREMITIES: There is minimal ankle edema noted with no other significant edema, clubbing, or cyanosis. MUSCULOSKELETAL: Grossly normal strength and range of motion in all extremities. INTEGUMENTARY: Skin appears intact with no bruises, wounds, or active lesions noted. NEURO/PSYC: Alert and oriented x3 with no dysarthria, facial droop, or lateralizing weakness noted. DATA: 12-lead EKG: The patient's 12-lead EKG shows sinus bradycardia with minimal motion artifact and no obvious significant abnormality. QTc is 451 milliseconds. career development engineer: A single printed telemetry strip from the emergency room is noted, which is dated 10/05/2016 and timed at 1532 hours. This shows what is essentially a motion artifact and most likely a parkinsonian tremor. This does not represent ventricular tachycardia, and QRS complexes can be seen to march through the region of artifact. There is no other evidence of nonsustained ventricular tachycardia that I can find on the patient's chart or on his batch and furnace manager at this time. Chest x-ray: The patient's chest x-ray shows mild cephalization, but is otherwise unremarkable with no clear evidence of congestive heart failure. Laboratory: CBC shows a white blood cell count of 5.1, hemoglobin 12, hematocrit 36, platelets 179. Electrolytes show a sodium of 140, potassium 4.6, chloride is 106, CO2 is 23, BUN 25, creatinine is 1.75, magnesium is 1.4, albumin is 3.1. Total CK is 233 with an MB fraction of 3.3. Troponin I is normal at 0.04. TSH is normal at 2.97. The patient's B- type natriuretic peptide is grossly elevated at 1690. The patient's creatinine at the time of admission is approximately 2.1. Of note, the patient has a positive influenza A screen. Urinalysis shows no evidence of urinary tract infection. ASSESSMENT AND PLAN: 1. Cardiac dysrhythmia: At this time, I am able to locate no convincing evidence of nonsustained ventricular tachycardia. Should there be any strips not attached to the chart at this time, please affix them in the front of the chart for review. At this time, I would recommend no specific treatment for any type of cardiac dysrhythmia. 2. Paroxysmal atrial fibrillation: The patient is presently being treated with flecainide. His elevated BNP is suggestive of congestive heart failure, though in the setting of acute on chronic renal failure, it is more difficult to interpret. A transthoracic echocardiogram will be obtained to evaluate for systolic or diastolic dysfunction. If the patient does have evidence of congestive heart failure, there is a Consultation Report [address] [place]. [address] NAME: JO CHRISTENSEN : 34 STATUS : ADM IN [facility]#: [id number] AGE: 80 ADM/REG DATE : 10/05/16 MR#: [id number] REPORT SERV DATE: 10/06/16 DICTATED BY: PINEDA QUIÑONES DATE: 10/06/16 REPORT STATUS : Draft TRANSCRIBED BY: CARLENE DATE: 10/06/16 relative contraindication to the use of flecainide. This would be particularly true if the patient has newly developed systolic dysfunction. The patient's most recent echocardiogram was a transesophageal echocardiogram performed in approximately 01/2016. This did show normal left ventricular systolic function with normal RV function and no significant valvular heart disease. A repeat echocardiogram is pending at this time. Amiodarone would be a reasonable choice in this elderly man with no obvious thyroid dysfunction or pulmonary disease, aside from his recent influenza infection. 3. Altered mental status, unclear etiology. It is unlikely that this would be attributable to congestive heart failure. 4. Possible new-onset heart failure. Continue gentle diuresis, though monitor closely for any evidence of increasing BUN/creatinine ratio. We will make further recommendations after a transthoracic echocardiogram has been obtained. Thank you for allowing me to participate in the care of Mr. Christensen. The Cardiology Service will continue to follow the patient closely during this hospitalization. JC/CARLENE Pineda Quiñones MD / [id number] CC: Denisha Kellogg Paul Daniel
[~2016-10-05 15:56] MED LIST: ACET500CAP PO; AGGRENOX PO; ALLEGRA180 PO; ARICEPT10 PO; ASAB PO; ATV1 PO; COG0.5 PO; CYANO1000T PO; FERROUS SULF324 MG PO; FLECAINIDE50 MG PO; FLOMAX4 PO; HALF81 PO; IBU800 PO; KLONO5 PO; LOP25 PO; LOPID6 PO; LORTAB 5 PO; MAGNESIUM OXIDE 250 MG PO; MAGNESIUM PO; MAGOX4 PO; MOBIC15 MG PO; MUCINEX1200 MG PO; NEUR300 PO; P10 PO; PR25 PO; PRILO PO; SEROQUEL300 MG PO; SEROQUEL50 MG PO; SPIRO25 PO; TESS PO; TOPICAL ANALGESIC TOP; ULTRAM50 PO; VITAMIN B-121000 MC1 SL; WELLSR100 PO; WELLSR150 PO; XARELTO10 MG PO; XARELTO20 MG PO; ZBETA10 PO; ZESTRIL30 MG PO
[2016-10-05 16:06] LABS: BASOPHILS 0.7 %; BASOPHILS ABSOLUTE 0.03 10/3/uL (0.0-0.16); EOSINOPHILS 0.9 %; EOSINOPHILS ABSOLUTE 0.04 10/3/uL (0.0-0.53); ER CBC TAT 0 Hrs 08 Mins; HEMATOCRIT 38.6 % (40.0-51.0); HEMOGLOBIN 12.3 g/dL (13.6-17.8); IMMATURE GRANULOCYTES 0.7 %; IMMATURE GRANULOCYTES ABSOLUTE 0.03 10/3/uL (0.0-0.11); LYMPHOCYTES 21.4 %; LYMPHOCYTES ABSOLUTE 0.96 10/3/uL (0.67-4.30); MEAN CORPUS HGB CONC 31.9 g/dL (32.0-36.0); MEAN CORPUSCULAR HEMOGLOB 28.4 pg (26.0-34.0); MEAN CORPUSCULAR VOLUME 89.1 fL (80-100); MEAN PLATELET VOLUME 9.7 fL (9.2-13.0); MONOCYTES 12.9 %; MONOCYTES ABSOLUTE 0.58 10/3/uL (0.21-1.20); NEUTROPHILS 63.4 %; NEUTROPHILS ABSOLUTE 2.84 10/3/uL (2.02-8.40); PLATELET COUNT 195 10/3/uL (150-400); RED CELL COUNT 4.33 10/6/uL (4.7-6.1); WHITE BLOOD CELLS 4.5 10/3/uL (4.5-10.5)
[2016-10-05 16:07] LABS: MANUAL DIFF NO %
[2016-10-05 16:15] LABS: INTERNATIONAL NORMAL RATI 1.7 UNITS (-); PARTIAL THROMBO TIME 38.8 SEC (22.5-37.2); PROTIME (NOT ORD) 20.1 SEC (12.0-14.5)
[2016-10-05 16:27] LABS: ALBUMIN 3.3 G/DL (3.5-5.0); ALKALINE PHOSPHATASE 76 U/L (45-117); BUN (BLOOD UREA NITROGEN) 29 MG/DL (6-23); CALCIUM, SERUM 8.4 MG/DL (8.5-10.4); CHEST PAIN PROFILE TAT 0 Hrs 29 Mins; CHLORIDE, SERUM 106 MMOL/L (96-112); CO2 (CARBON DIOXIDE) 25 MMOL/L (24-34); CREATININE 2.05 MG/DL (0.70-1.30); DIRECT BILIRUBIN 0.1 MG/DL (0.0-0.4); GFR AFRICAN AMERICAN 34 ML/MIN (>=60); GFR NON AFRICAN AMERICAN 30 ML/MIN (>=60); INDIRECT BILIRUBIN(NOT ORDER) 0.1 MG/DL (0.1-0.9); POTASSIUM, SERUM 4.8 MMOL/L (3.5-5.3); SGOT(AST) 23 U/L (5-40); SGPT(ALT) 34 U/L (5-65); SODIUM, SERUM 139 MMOL/L (135-148); TOTAL BILIRUBIN 0.2 MG/DL (0-1.2); TOTAL PROTEIN 6.9 G/DL (6.0-8.5); TROPONIN I <0.02 NG/ML (<0.05)
[2016-10-05 16:28] LABS: GLUCOSE, SERUM 78 MG/DL (60-99)
[2016-10-05 16:31] LABS: LACTATE 2.1 MMOL/L (0.3-2.4)
[2016-10-05 16:39] LABS: B NATRIURETIC PEPTIDE (BNP) 828.9 PG/ML (< 100.0)
[2016-10-05 17:47] LABS: WBC (NOT ORDERED) (RFLEX) 0 (0-5)
[2016-10-05 18:08] LABS: ASCORBIC ACID (UR NOT ORDER) NEG (NEG); BILIRUBIN, URINE NEGATIVE (NEG); ER URINALYSIS TAT 0 Hrs 21 Mins; KETONE, URINE NEGATIVE (NEG); LEUKOCYTE ESTERASE(NOT OR NEG (NEG); NITRITE (URINE) NEG (NEG)
[2016-10-05] MEDS ORDERED: COG0.5 PO (19:31)
[2016-10-06 00:53] LABS: ALLENS TEST Pos; BE (BASE EXCESS) -2.1 MEQ/L (0 +/- 2.5); CARBOXYHEMOGLOBIN 0.5 % (0-3); DEVICE NC; HCO3 (ACTUAL BICARBONATE) 23.4 MEQ/L (23-27); HEMOBLOGIN CONTENT 12.3 G/DL (14-18); INSTRUMENT SERIAL # 8083; METHEMOGLOBIN 0.3 % (0-3); O2 CONTENT 16.5 VOL% (18-24); PCO2 (CO2 TENSION) 43 MMHG (35-45); PO2 (O2 TENSION) 80 MMHG (79-93); SAMPLE Arterial; pH 7.35 (7.37-7.43)
[2016-10-06 01:42] LABS: INFLUENZA A SCREEN POSITIVE (NEGATIVE); INFLUENZA B SCREEN NEGATIVE (NEGATIVE)
[2016-10-06 05:59] LABS: INTERNATIONAL NORMAL RATI 1.4 UNITS (-); PROTIME (NOT ORD) 17.3 SEC (12.0-14.5)
[2016-10-06 06:00] LABS: PARTIAL THROMBO TIME 35.1 SEC (22.5-37.2)
[2016-10-06 06:33] LABS: ALLENS TEST Pos; BE (BASE EXCESS) -1.6 MEQ/L (0 +/- 2.5); CARBOXYHEMOGLOBIN 0.3 % (0-3); DEVICE NC; HCO3 (ACTUAL BICARBONATE) 24.1 MEQ/L (23-27); HEMOBLOGIN CONTENT 11.9 G/DL (14-18); INSTRUMENT SERIAL # 8083; METHEMOGLOBIN 0.2 % (0-3); O2 CONTENT 15.9 VOL% (18-24); PCO2 (CO2 TENSION) 44 MMHG (35-45); PO2 (O2 TENSION) 75 MMHG (79-93); SAMPLE Arterial; pH 7.35 (7.37-7.43)
[2016-10-06 08:45] LABS: BASOPHILS 0.4 %; BASOPHILS ABSOLUTE 0.02 10/3/uL (0.0-0.16); EOSINOPHILS 0 %; HEMATOCRIT 36.2 % (40.0-51.0); HEMOGLOBIN 11.6 g/dL (13.6-17.8); IMMATURE GRANULOCYTES 0.4 %; IMMATURE GRANULOCYTES ABSOLUTE 0.02 10/3/uL (0.0-0.11); LYMPHOCYTES 16.4 %; LYMPHOCYTES ABSOLUTE 0.83 10/3/uL (0.67-4.30); MEAN CORPUSCULAR HEMOGLOB 28.4 pg (26.0-34.0); MEAN CORPUSCULAR VOLUME 88.5 fL (80-100); MEAN PLATELET VOLUME 9.6 fL (9.2-13.0); MONOCYTES 16.2 %; MONOCYTES ABSOLUTE 0.82 10/3/uL (0.21-1.20); NEUTROPHILS 66.6 %; NEUTROPHILS ABSOLUTE 3.38 10/3/uL (2.02-8.40); PLATELET COUNT 179 10/3/uL (150-400); RBC DISTRIBUTION WIDTH 14.8 % (12.0-16.0); RED CELL COUNT 4.09 10/6/uL (4.7-6.1); WHITE BLOOD CELLS 5.1 10/3/uL (4.5-10.5)
[2016-10-06 08:46] LABS: MANUAL DIFF NO %
[2016-10-06 09:11] LABS: ALBUMIN 3.1 G/DL (3.5-5.0); ALKALINE PHOSPHATASE 69 U/L (45-117); CALCIUM, SERUM 8.5 MG/DL (8.5-10.4); CHLORIDE, SERUM 106 MMOL/L (96-112); CO2 (CARBON DIOXIDE) 23 MMOL/L (24-34); CPK 233 U/L (0-200); CREATININE 1.75 MG/DL (0.70-1.30); GFR AFRICAN AMERICAN 41 ML/MIN (>=60); GFR NON AFRICAN AMERICAN 36 ML/MIN (>=60); GLUCOSE, SERUM 84 MG/DL (60-99); PHOSPHORUS, SERUM 2.5 MG/DL (2.5-4.5); POTASSIUM, SERUM 4.6 MMOL/L (3.5-5.3); SGOT(AST) 25 U/L (5-40); SGPT(ALT) 30 U/L (5-65); SODIUM, SERUM 140 MMOL/L (135-148); TOTAL PROTEIN 6.5 G/DL (6.0-8.5); TROPONIN I 0.04 NG/ML (<0.05)
[2016-10-06 09:13] LABS: A/G RATIO 0.9 (0.7-1.9); BUN (BLOOD UREA NITROGEN) 25 MG/DL (6-23); CK-MB 3.3 NG/ML; GLOBULIN 3.4 G/DL (2.5-4.1); TOTAL BILIRUBIN 1.2 MG/DL (0-1.2)
[2016-10-07 02:43] LABS: ALLENS TEST Pos; BE (BASE EXCESS) -4.2 MEQ/L (0 +/- 2.5); BIPAP 17/5 cm.H2O; CARBOXYHEMOGLOBIN 0.5 % (0-3); HCO3 (ACTUAL BICARBONATE) 33.6 MEQ/L (23-27); HEMOBLOGIN CONTENT 13.5 G/DL (14-18); INSTRUMENT SERIAL # 8083; METHEMOGLOBIN 0.7 % (0-3); O2 CONTENT 18.3 VOL% (18-24); OPERATOR ID 30013; PCO2 (CO2 TENSION) 184 MMHG (35-45); PO2 (O2 TENSION) 135 MMHG (79-93); SAMPLE Arterial; pH 6.88 (7.37-7.43)
[2016-10-07 05:04] LABS: BUN (BLOOD UREA NITROGEN) 29 MG/DL (6-23); CALCIUM, SERUM 7.8 MG/DL (8.5-10.4); CHLORIDE, SERUM 105 MMOL/L (96-112); CO2 (CARBON DIOXIDE) 25 MMOL/L (24-34); CREATININE 2.35 MG/DL (0.70-1.30); GFR AFRICAN AMERICAN 29 ML/MIN (>=60); GFR NON AFRICAN AMERICAN 25 ML/MIN (>=60); GLUCOSE, SERUM 119 MG/DL (60-99); POTASSIUM, SERUM 4.7 MMOL/L (3.5-5.3); SODIUM, SERUM 142 MMOL/L (135-148)
[2016-10-07 05:22] LABS: INSTRUMENT SERIAL # 8083
[2016-10-07 05:23] LABS: BE (BASE EXCESS) -4.4 MEQ/L (0 +/- 2.5); CARBOXYHEMOGLOBIN 0.2 % (0-3); HCO3 (ACTUAL BICARBONATE) 23.1 MEQ/L (23-27); HEMOBLOGIN CONTENT 12.8 G/DL (14-18); METHEMOGLOBIN 0.5 % (0-3); MODE CMV; O2 CONTENT 18.3 VOL% (18-24); OPERATOR ID 31061; PCO2 (CO2 TENSION) 53 MMHG (35-45); PO2 (O2 TENSION) 226 MMHG (79-93); SAMPLE Arterial; TIDAL VOLUME 500 ML; pH 7.26 (7.37-7.43)
[2016-10-07 12:32] LABS: CK-MB 9.6 NG/ML
[2016-10-07 12:34] LABS: TROPONIN I 0.43 NG/ML (<0.05)
[2016-10-07 16:17] LABS: PROCALCITONIN 1.1 ng/mL (<0.5)
[2016-10-07 19:32] LABS: GLUCOSE CSF 84 MG/DL (45-70); TOTAL PROTEIN, CSF 54.1 MG/DL (15-45)
[2016-10-07 20:58] LABS: CSF APPEARANCE (NOT ORD) CLEAR (CLEAR); CSF BASO 0 % (NO REF RANGE); CSF COLOR (NOT ORD) COLORLESS (COLORLESS); CSF EOS 0 % (0-1); CSF LYMPH (NOT ORD) 85 % (28-96); CSF MONO 15 % (16-56); CSF RBC (NOT ORD) 1 MM3 (NO REFERENCE); CSF SEGS (NOT ORD) 0 % (0-7); CSF WBC (NOT ORD) 2 /uL (0-10); CSF XANTHROCHROMIA NEG (NEG)
[2016-10-08 04:07] LABS: ALLENS TEST Pos; BE (BASE EXCESS) -5.8 MEQ/L (0 +/- 2.5); HCO3 (ACTUAL BICARBONATE) 20.1 MEQ/L (23-27); HEMOBLOGIN CONTENT 12.2 G/DL (14-18); INSTRUMENT SERIAL # 8083; METHEMOGLOBIN 0.3 % (0-3); MODE CMV; O2 CONTENT 16.4 VOL% (18-24); OPERATOR ID 17589; PCO2 (CO2 TENSION) 41 MMHG (35-45); PO2 (O2 TENSION) 80 MMHG (79-93); SAMPLE Arterial; TIDAL VOLUME 500 ML; pH 7.31 (7.37-7.43)
[2016-10-08 05:01] LABS: HEMATOCRIT 35.4 % (40.0-51.0); HEMOGLOBIN 11.4 g/dL (13.6-17.8); MEAN CORPUS HGB CONC 32.2 g/dL (32.0-36.0); MEAN CORPUSCULAR HEMOGLOB 28.3 pg (26.0-34.0); MEAN CORPUSCULAR VOLUME 87.8 fL (80-100); MEAN PLATELET VOLUME 9.8 fL (9.2-13.0); PLATELET COUNT 156 10/3/uL (150-400); RBC DISTRIBUTION WIDTH 15.1 % (12.0-16.0); RED CELL COUNT 4.03 10/6/uL (4.7-6.1)
[2016-10-08 05:02] LABS: MANUAL DIFF YES %; WHITE BLOOD CELLS 17.8 10/3/uL (4.5-10.5)
[2016-10-08 05:16] LABS: CALCIUM, SERUM 7.5 MG/DL (8.5-10.4); CHLORIDE, SERUM 101 MMOL/L (96-112); CO2 (CARBON DIOXIDE) 21 MMOL/L (24-34); CREATININE 2.52 MG/DL (0.70-1.30); GFR AFRICAN AMERICAN 27 ML/MIN (>=60); GFR NON AFRICAN AMERICAN 23 ML/MIN (>=60); PHOSPHORUS, SERUM 3.2 MG/DL (2.5-4.5); POTASSIUM, SERUM 4.2 MMOL/L (3.5-5.3); SGOT(AST) 31 U/L (5-40); SGPT(ALT) 25 U/L (5-65); SODIUM, SERUM 136 MMOL/L (135-148); TOTAL BILIRUBIN 1.1 MG/DL (0-1.2); TOTAL PROTEIN 5.8 G/DL (6.0-8.5)
[2016-10-08 05:18] LABS: A/G RATIO 0.7 (0.7-1.9); ALBUMIN 2.4 G/DL (3.5-5.0); ALKALINE PHOSPHATASE 42 U/L (45-117); BUN (BLOOD UREA NITROGEN) 39 MG/DL (6-23); GLOBULIN 3.4 G/DL (2.5-4.1); GLUCOSE, SERUM 242 MG/DL (60-99)
[2016-10-08 05:27] LABS: BAND NEUTROPHILS 43 %; IMMATURE GRANS ABSOLUTE (CALC) 0.71 10/3/uL (0.0-0.11); LYMPHOCYTES 1 %; LYMPHOCYTES ABSOLUTE (CALC) 0.18 10/3/uL (0.67-4.30); METAMYELOCYTES 4 %; MONOCYTES 3 %; MONOCYTES ABSOLUTE (CALC) 0.53 10/3/uL (0.21-1.20); NEUTROPHILS ABSOLUTE (CALC) 16.38 10/3/uL (2.02-8.40); PLATELET ESTIMATE ADQ (ADEQUATE); RBC MORPHOLOGY NORM (NORMAL); SEGMENTED NEUTROPHIL (0) 49 %; TOTAL NUCLEATED CELLS 100
[2016-10-08 16:38] LABS: WBC (NOT ORDERED) (RFLEX) 0 (0-5)
[2016-10-08 16:51] LABS: ASCORBIC ACID (UR NOT ORDER) NEG (NEG); BILIRUBIN, URINE NEGATIVE (NEG); KETONE, URINE NEGATIVE (NEG); LEUKOCYTE ESTERASE(NOT OR NEG (NEG)
[2016-10-08 17:04] LABS: CREATININE, URINE 95.7 MG/DL
[2016-10-09 04:31] LABS: BASOPHILS 0.1 %; BASOPHILS ABSOLUTE 0.01 10/3/uL (0.0-0.16); EOSINOPHILS 0 %; HEMOGLOBIN 10.4 g/dL (13.6-17.8); IMMATURE GRANULOCYTES 0.4 %; IMMATURE GRANULOCYTES ABSOLUTE 0.06 10/3/uL (0.0-0.11); LYMPHOCYTES ABSOLUTE 0.49 10/3/uL (0.67-4.30); MEAN CORPUS HGB CONC 33.2 g/dL (32.0-36.0); MEAN CORPUSCULAR HEMOGLOB 28.6 pg (26.0-34.0); MEAN PLATELET VOLUME 10.1 fL (9.2-13.0); MONOCYTES 3.3 %; MONOCYTES ABSOLUTE 0.55 10/3/uL (0.21-1.20); NEUTROPHILS 93.2 %; NEUTROPHILS ABSOLUTE 15.46 10/3/uL (2.02-8.40); PLATELET COUNT 156 10/3/uL (150-400); RBC DISTRIBUTION WIDTH 15.1 % (12.0-16.0); RED CELL COUNT 3.64 10/6/uL (4.7-6.1); WHITE BLOOD CELLS 16.6 10/3/uL (4.5-10.5)
[2016-10-09 04:37] LABS: INTERNATIONAL NORMAL RATI 1.4 UNITS (-); PROTIME (NOT ORD) 16.7 SEC (12.0-14.5)
[2016-10-09 04:44] LABS: ALBUMIN 2.2 G/DL (3.5-5.0); ALKALINE PHOSPHATASE 43 U/L (45-117); CALCIUM, SERUM 7.6 MG/DL (8.5-10.4); CHLORIDE, SERUM 98 MMOL/L (96-112); CO2 (CARBON DIOXIDE) 23 MMOL/L (24-34); CPK 474 U/L (0-200); CREATININE 2.35 MG/DL (0.70-1.30); DIRECT BILIRUBIN 0.2 MG/DL (0.0-0.4); GFR AFRICAN AMERICAN 29 ML/MIN (>=60); GFR NON AFRICAN AMERICAN 25 ML/MIN (>=60); HEMATOCRIT 31.3 % (40.0-51.0); INDIRECT BILIRUBIN(NOT ORDER) 0.8 MG/DL (0.1-0.9); MANUAL DIFF NO %; PHOSPHORUS, SERUM 3.1 MG/DL (2.5-4.5); POTASSIUM, SERUM 3.6 MMOL/L (3.5-5.3); SGOT(AST) 25 U/L (5-40); SGPT(ALT) 19 U/L (5-65); SODIUM, SERUM 133 MMOL/L (135-148); TOTAL PROTEIN 5.8 G/DL (6.0-8.5)
[2016-10-09 04:47] LABS: BUN (BLOOD UREA NITROGEN) 44 MG/DL (6-23); GLUCOSE, SERUM 177 MG/DL (60-99)
[2016-10-10 03:23] LABS: BE (BASE EXCESS) -2.8 MEQ/L (0 +/- 2.5); CARBOXYHEMOGLOBIN 0.3 % (0-3); HCO3 (ACTUAL BICARBONATE) 22.4 MEQ/L (23-27); HEMOBLOGIN CONTENT 10.4 G/DL (14-18); INSTRUMENT SERIAL # 8083; METHEMOGLOBIN 0.1 % (0-3); MODE CMV; O2 CONTENT 14.3 VOL% (18-24); PCO2 (CO2 TENSION) 40 MMHG (35-45); PO2 (O2 TENSION) 96 MMHG (79-93); SAMPLE Arterial; TIDAL VOLUME 500 ML; pH 7.36 (7.37-7.43)
[2016-10-10 04:05] LABS: BASOPHILS 0.1 %; BASOPHILS ABSOLUTE 0.01 10/3/uL (0.0-0.16); EOSINOPHILS 0 %; HEMATOCRIT 30.1 % (40.0-51.0); HEMOGLOBIN 10.1 g/dL (13.6-17.8); IMMATURE GRANULOCYTES 0.3 %; IMMATURE GRANULOCYTES ABSOLUTE 0.04 10/3/uL (0.0-0.11); LYMPHOCYTES 3.3 %; MANUAL DIFF NO %; MEAN CORPUS HGB CONC 33.6 g/dL (32.0-36.0); MEAN CORPUSCULAR HEMOGLOB 28.6 pg (26.0-34.0); MEAN CORPUSCULAR VOLUME 85.3 fL (80-100); MEAN PLATELET VOLUME 9.7 fL (9.2-13.0); MONOCYTES 4.2 %; MONOCYTES ABSOLUTE 0.51 10/3/uL (0.21-1.20); NEUTROPHILS 92.1 %; NEUTROPHILS ABSOLUTE 11.23 10/3/uL (2.02-8.40); PLATELET COUNT 138 10/3/uL (150-400); RBC DISTRIBUTION WIDTH 15.4 % (12.0-16.0); RED CELL COUNT 3.53 10/6/uL (4.7-6.1); WHITE BLOOD CELLS 12.2 10/3/uL (4.5-10.5)
[2016-10-10 04:21] LABS: CALCIUM, SERUM 7.8 MG/DL (8.5-10.4); CHLORIDE, SERUM 103 MMOL/L (96-112); CO2 (CARBON DIOXIDE) 26 MMOL/L (24-34); PHOSPHORUS, SERUM 2.5 MG/DL (2.5-4.5); POTASSIUM, SERUM 3.5 MMOL/L (3.5-5.3); SODIUM, SERUM 139 MMOL/L (135-148)
[2016-10-10 04:25] LABS: BUN (BLOOD UREA NITROGEN) 37 MG/DL (6-23); CREATININE 1.74 MG/DL (0.70-1.30); GFR AFRICAN AMERICAN 42 ML/MIN (>=60); GFR NON AFRICAN AMERICAN 36 ML/MIN (>=60); GLUCOSE, SERUM 114 MG/DL (60-99)
[2016-10-10 13:41] LABS: HSV DNA TYPE 1 Not Detected (NOTDET); HSV DNA TYPE 2 Not Detected (NOTDET)
[2016-10-11 03:36] LABS: ALLENS TEST Pos; BE (BASE EXCESS) -0.5 MEQ/L (0 +/- 2.5); CARBOXYHEMOGLOBIN 0.4 % (0-3); HCO3 (ACTUAL BICARBONATE) 23.6 MEQ/L (23-27); HEMOBLOGIN CONTENT 10.1 G/DL (14-18); INSTRUMENT SERIAL # 8083; METHEMOGLOBIN 0.3 % (0-3); MODE CMV; O2 CONTENT 13.6 VOL% (18-24); PCO2 (CO2 TENSION) 37 MMHG (35-45); PO2 (O2 TENSION) 81 MMHG (79-93); SAMPLE Arterial; TIDAL VOLUME 500 ML; pH 7.43 (7.37-7.43)
[2016-10-11 05:46] LABS: BASOPHILS 0.2 %; BASOPHILS ABSOLUTE 0.02 10/3/uL (0.0-0.16); EOSINOPHILS 0.1 %; EOSINOPHILS ABSOLUTE 0.01 10/3/uL (0.0-0.53); HEMATOCRIT 28.1 % (40.0-51.0); HEMOGLOBIN 9.2 g/dL (13.6-17.8); IMMATURE GRANULOCYTES 0.7 %; IMMATURE GRANULOCYTES ABSOLUTE 0.06 10/3/uL (0.0-0.11); LYMPHOCYTES ABSOLUTE 0.93 10/3/uL (0.67-4.30); MEAN CORPUS HGB CONC 32.7 g/dL (32.0-36.0); MEAN CORPUSCULAR HEMOGLOB 28.2 pg (26.0-34.0); MEAN CORPUSCULAR VOLUME 86.2 fL (80-100); MEAN PLATELET VOLUME 10.2 fL (9.2-13.0); MONOCYTES ABSOLUTE 0.51 10/3/uL (0.21-1.20); NEUTROPHILS ABSOLUTE 6.93 10/3/uL (2.02-8.40); PLATELET COUNT 142 10/3/uL (150-400); RBC DISTRIBUTION WIDTH 15.8 % (12.0-16.0); RED CELL COUNT 3.26 10/6/uL (4.7-6.1); WHITE BLOOD CELLS 8.5 10/3/uL (4.5-10.5)
[2016-10-11 05:51] LABS: MANUAL DIFF NO %
[2016-10-11 05:54] LABS: BUN (BLOOD UREA NITROGEN) 31 MG/DL (6-23); CALCIUM, SERUM 8.5 MG/DL (8.5-10.4); CHLORIDE, SERUM 110 MMOL/L (96-112); CO2 (CARBON DIOXIDE) 24 MMOL/L (24-34); CREATININE 1.56 MG/DL (0.70-1.30); GFR AFRICAN AMERICAN 48 ML/MIN (>=60); GFR NON AFRICAN AMERICAN 41 ML/MIN (>=60); GLUCOSE, SERUM 100 MG/DL (60-99); POTASSIUM, SERUM 3.6 MMOL/L (3.5-5.3); SODIUM, SERUM 145 MMOL/L (135-148)
[2016-10-11 07:22] LABS: PHOSPHORUS, SERUM 1.7 MG/DL (2.5-4.5)
[2016-10-12 04:52] LABS: ALLENS TEST Pos; BE (BASE EXCESS) -3.4 MEQ/L (0 +/- 2.5); CARBOXYHEMOGLOBIN 0.1 % (0-3); HCO3 (ACTUAL BICARBONATE) 21.5 MEQ/L (23-27); HEMOBLOGIN CONTENT 10.4 G/DL (14-18); INSTRUMENT SERIAL # 8083; METHEMOGLOBIN 0.3 % (0-3); MODE CMV; PCO2 (CO2 TENSION) 38 MMHG (35-45); PO2 (O2 TENSION) 81 MMHG (79-93); SAMPLE Arterial; TIDAL VOLUME 500 ML; pH 7.37 (7.37-7.43)
[2016-10-12 04:56] LABS: BASOPHILS 0.4 %; BASOPHILS ABSOLUTE 0.03 10/3/uL (0.0-0.16); EOSINOPHILS 0.1 %; EOSINOPHILS ABSOLUTE 0.01 10/3/uL (0.0-0.53); HEMOGLOBIN 10.1 g/dL (13.6-17.8); IMMATURE GRANULOCYTES 1.2 %; IMMATURE GRANULOCYTES ABSOLUTE 0.09 10/3/uL (0.0-0.11); LYMPHOCYTES 19.3 %; LYMPHOCYTES ABSOLUTE 1.41 10/3/uL (0.67-4.30); MEAN CORPUS HGB CONC 32.2 g/dL (32.0-36.0); MEAN CORPUSCULAR HEMOGLOB 28.3 pg (26.0-34.0); MEAN PLATELET VOLUME 9.6 fL (9.2-13.0); MONOCYTES 9.7 %; MONOCYTES ABSOLUTE 0.71 10/3/uL (0.21-1.20); NEUTROPHILS 69.3 %; NEUTROPHILS ABSOLUTE 5.05 10/3/uL (2.02-8.40); PLATELET COUNT 141 10/3/uL (150-400); RBC DISTRIBUTION WIDTH 15.9 % (12.0-16.0); RED CELL COUNT 3.57 10/6/uL (4.7-6.1); WHITE BLOOD CELLS 7.3 10/3/uL (4.5-10.5)
[2016-10-12 05:05] LABS: INTERNATIONAL NORMAL RATI 2.1 UNITS (-)
[2016-10-12 05:13] LABS: CALCIUM, SERUM 8.3 MG/DL (8.5-10.4); CHLORIDE, SERUM 114 MMOL/L (96-112); CO2 (CARBON DIOXIDE) 23 MMOL/L (24-34); CREATININE 1.42 MG/DL (0.70-1.30); DIRECT BILIRUBIN 0.3 MG/DL (0.0-0.4); GFR AFRICAN AMERICAN 53 ML/MIN (>=60); GFR NON AFRICAN AMERICAN 46 ML/MIN (>=60); GLUCOSE, SERUM 117 MG/DL (60-99); INDIRECT BILIRUBIN(NOT ORDER) 0.5 MG/DL (0.1-0.9); POTASSIUM, SERUM 3.9 MMOL/L (3.5-5.3); PREALBUMIN 13.9 MG/DL (17.0-43.0); SGOT(AST) 11 U/L (5-40); SGPT(ALT) 17 U/L (5-65); SODIUM, SERUM 146 MMOL/L (135-148); TOTAL BILIRUBIN 0.8 MG/DL (0-1.2); TOTAL PROTEIN 6.2 G/DL (6.0-8.5)
[2016-10-12 05:14] LABS: A/G RATIO 1.5 (0.7-1.9); ALBUMIN 3.7 G/DL (3.5-5.0); ALKALINE PHOSPHATASE 28 U/L (45-117); BUN (BLOOD UREA NITROGEN) 27 MG/DL (6-23); GLOBULIN 2.5 G/DL (2.5-4.1); PHOSPHORUS, SERUM 2.7 MG/DL (2.5-4.5)
[2016-10-12 05:16] LABS: HEMATOCRIT 31.4 % (40.0-51.0); MANUAL DIFF NO %
[2016-10-13 01:21] LABS: BUN (BLOOD UREA NITROGEN) 24 MG/DL (6-23); CALCIUM, SERUM 8.8 MG/DL (8.5-10.4); CHLORIDE, SERUM 115 MMOL/L (96-112); CK-MB 1.1 NG/ML; CO2 (CARBON DIOXIDE) 23 MMOL/L (24-34); CPK 162 U/L (0-200); CREATININE 1.33 MG/DL (0.70-1.30); GFR AFRICAN AMERICAN 58 ML/MIN (>=60); GFR NON AFRICAN AMERICAN 50 ML/MIN (>=60); GLUCOSE, SERUM 92 MG/DL (60-99); POTASSIUM, SERUM 4.1 MMOL/L (3.5-5.3); SODIUM, SERUM 148 MMOL/L (135-148); TROPONIN I 0.08 NG/ML (<0.05)
[2016-10-13 05:40] LABS: BASOPHILS 0.3 %; BASOPHILS ABSOLUTE 0.02 10/3/uL (0.0-0.16); EOSINOPHILS 0.8 %; EOSINOPHILS ABSOLUTE 0.06 10/3/uL (0.0-0.53); HEMATOCRIT 29.8 % (40.0-51.0); HEMOGLOBIN 9.7 g/dL (13.6-17.8); IMMATURE GRANULOCYTES 1.8 %; IMMATURE GRANULOCYTES ABSOLUTE 0.13 10/3/uL (0.0-0.11); MEAN CORPUS HGB CONC 32.6 g/dL (32.0-36.0); MEAN CORPUSCULAR HEMOGLOB 28.4 pg (26.0-34.0); MEAN CORPUSCULAR VOLUME 87.4 fL (80-100); MEAN PLATELET VOLUME 9.8 fL (9.2-13.0); MONOCYTES ABSOLUTE 1.16 10/3/uL (0.21-1.20); NEUTROPHILS 70.1 %; PLATELET COUNT 170 10/3/uL (150-400); RBC DISTRIBUTION WIDTH 16.2 % (12.0-16.0); RED CELL COUNT 3.41 10/6/uL (4.7-6.1); WHITE BLOOD CELLS 7.3 10/3/uL (4.5-10.5)
[2016-10-13 05:42] LABS: MANUAL DIFF NO %
[2016-10-14 07:29] LABS: BASOPHILS 0.5 %; BASOPHILS ABSOLUTE 0.04 10/3/uL (0.0-0.16); EOSINOPHILS 2.4 %; EOSINOPHILS ABSOLUTE 0.18 10/3/uL (0.0-0.53); HEMOGLOBIN 10.8 g/dL (13.6-17.8); IMMATURE GRANULOCYTES 2.7 %; LYMPHOCYTES 21.9 %; LYMPHOCYTES ABSOLUTE 1.64 10/3/uL (0.67-4.30); MEAN CORPUS HGB CONC 31.4 g/dL (32.0-36.0); MEAN CORPUSCULAR VOLUME 89.1 fL (80-100); MEAN PLATELET VOLUME 10.3 fL (9.2-13.0); MONOCYTES 9.5 %; MONOCYTES ABSOLUTE 0.71 10/3/uL (0.21-1.20); NEUTROPHILS ABSOLUTE 4.73 10/3/uL (2.02-8.40); PLATELET COUNT 215 10/3/uL (150-400); RBC DISTRIBUTION WIDTH 16.3 % (12.0-16.0); RED CELL COUNT 3.86 10/6/uL (4.7-6.1); WHITE BLOOD CELLS 7.5 10/3/uL (4.5-10.5)
[2016-10-14 07:30] LABS: BUN (BLOOD UREA NITROGEN) 25 MG/DL (6-23); CALCIUM, SERUM 9.2 MG/DL (8.5-10.4); CHLORIDE, SERUM 113 MMOL/L (96-112); CO2 (CARBON DIOXIDE) 22 MMOL/L (24-34); CREATININE 1.57 MG/DL (0.70-1.30); GFR AFRICAN AMERICAN 47 ML/MIN (>=60); GFR NON AFRICAN AMERICAN 41 ML/MIN (>=60); GLUCOSE, SERUM 96 MG/DL (60-99); PHOSPHORUS, SERUM 2.6 MG/DL (2.5-4.5); SODIUM, SERUM 146 MMOL/L (135-148)
[2016-10-14 07:40] LABS: HEMATOCRIT 34.4 % (40.0-51.0); MANUAL DIFF NO %
[2016-10-14 08:04] LABS: PROCALCITONIN 0.41 ng/mL (<0.5)
[2016-10-15 10:10] LABS: CALCIUM, SERUM 8.9 MG/DL (8.5-10.4); CHLORIDE, SERUM 110 MMOL/L (96-112); CO2 (CARBON DIOXIDE) 26 MMOL/L (24-34); CREATININE 1.87 MG/DL (0.70-1.30); GFR AFRICAN AMERICAN 38 ML/MIN (>=60); GFR NON AFRICAN AMERICAN 33 ML/MIN (>=60); PHOSPHORUS, SERUM 3.1 MG/DL (2.5-4.5); POTASSIUM, SERUM 4.3 MMOL/L (3.5-5.3); SODIUM, SERUM 146 MMOL/L (135-148)
[2016-10-15 10:11] LABS: BUN (BLOOD UREA NITROGEN) 33 MG/DL (6-23); GLUCOSE, SERUM 119 MG/DL (60-99)
[2016-10-16 05:00] LABS: BUN (BLOOD UREA NITROGEN) 37 MG/DL (6-23); CALCIUM, SERUM 8.7 MG/DL (8.5-10.4); CHLORIDE, SERUM 110 MMOL/L (96-112); CO2 (CARBON DIOXIDE) 25 MMOL/L (24-34); CREATININE 2.29 MG/DL (0.70-1.30); GFR AFRICAN AMERICAN 30 ML/MIN (>=60); GFR NON AFRICAN AMERICAN 26 ML/MIN (>=60); GLUCOSE, SERUM 96 MG/DL (60-99); POTASSIUM, SERUM 4.2 MMOL/L (3.5-5.3); SODIUM, SERUM 144 MMOL/L (135-148)
[2016-10-16 18:15] LABS: FOLATE 6.2 NG/ML (>5.2)
[2016-10-16 18:32] LABS: PROCALCITONIN 0.19 ng/mL (<0.5)
[2016-10-17 09:09] LABS: BUN (BLOOD UREA NITROGEN) 36 MG/DL (6-23); CALCIUM, SERUM 9.1 MG/DL (8.5-10.4); CHLORIDE, SERUM 111 MMOL/L (96-112); CO2 (CARBON DIOXIDE) 23 MMOL/L (24-34); CREATININE 2.09 MG/DL (0.70-1.30); GFR AFRICAN AMERICAN 33 ML/MIN (>=60); GFR NON AFRICAN AMERICAN 29 ML/MIN (>=60); GLUCOSE, SERUM 93 MG/DL (60-99); POTASSIUM, SERUM 4.4 MMOL/L (3.5-5.3); SODIUM, SERUM 144 MMOL/L (135-148)
[2016-10-18 07:17] LABS: BUN (BLOOD UREA NITROGEN) 35 MG/DL (6-23); CALCIUM, SERUM 9.2 MG/DL (8.5-10.4); CHLORIDE, SERUM 113 MMOL/L (96-112); CO2 (CARBON DIOXIDE) 26 MMOL/L (24-34); CREATININE 1.92 MG/DL (0.70-1.30); GFR AFRICAN AMERICAN 37 ML/MIN (>=60); GFR NON AFRICAN AMERICAN 32 ML/MIN (>=60); GLUCOSE, SERUM 99 MG/DL (60-99); POTASSIUM, SERUM 4.5 MMOL/L (3.5-5.3); SODIUM, SERUM 146 MMOL/L (135-148)
[2016-10-19 09:45] LABS: BASOPHILS 0.8 %; BASOPHILS ABSOLUTE 0.08 10/3/uL (0.0-0.16); EOSINOPHILS 0.7 %; EOSINOPHILS ABSOLUTE 0.07 10/3/uL (0.0-0.53); HEMATOCRIT 32.2 % (40.0-51.0); IMMATURE GRANULOCYTES 0.5 %; IMMATURE GRANULOCYTES ABSOLUTE 0.05 10/3/uL (0.0-0.11); LYMPHOCYTES 24.6 %; LYMPHOCYTES ABSOLUTE 2.56 10/3/uL (0.67-4.30); MANUAL DIFF NO %; MEAN CORPUS HGB CONC 31.1 g/dL (32.0-36.0); MEAN CORPUSCULAR HEMOGLOB 27.6 pg (26.0-34.0); MEAN PLATELET VOLUME 10.1 fL (9.2-13.0); MONOCYTES 8.2 %; MONOCYTES ABSOLUTE 0.85 10/3/uL (0.21-1.20); NEUTROPHILS 65.2 %; NEUTROPHILS ABSOLUTE 6.78 10/3/uL (2.02-8.40); PLATELET COUNT 263 10/3/uL (150-400); RBC DISTRIBUTION WIDTH 15.8 % (12.0-16.0); RED CELL COUNT 3.62 10/6/uL (4.7-6.1); WHITE BLOOD CELLS 10.4 10/3/uL (4.5-10.5)
[2016-10-19 09:52] LABS: CALCIUM, SERUM 9.9 MG/DL (8.5-10.4); CHLORIDE, SERUM 114 MMOL/L (96-112); CO2 (CARBON DIOXIDE) 25 MMOL/L (24-34); CREATININE 1.69 MG/DL (0.70-1.30); GFR AFRICAN AMERICAN 43 ML/MIN (>=60); GFR NON AFRICAN AMERICAN 37 ML/MIN (>=60); POTASSIUM, SERUM 4.5 MMOL/L (3.5-5.3); SODIUM, SERUM 147 MMOL/L (135-148)
[2016-10-19 09:53] LABS: BUN (BLOOD UREA NITROGEN) 29 MG/DL (6-23); GLUCOSE, SERUM 132 MG/DL (60-99)
[2016-10-19 10:10] LABS: ALBUMIN 3.8 G/DL (3.5-5.0); ALKALINE PHOSPHATASE 47 U/L (45-117); GLOBULIN 3.7 G/DL (2.5-4.1); SGOT(AST) 20 U/L (5-40); SGPT(ALT) 24 U/L (5-65); TOTAL BILIRUBIN 0.8 MG/DL (0-1.2); TOTAL PROTEIN 7.5 G/DL (6.0-8.5); TROPONIN I <0.02 NG/ML (<0.05)
[2016-10-19 10:51] LABS: BE (BASE EXCESS) -3.1 MEQ/L (0 +/- 2.5); CARBOXYHEMOGLOBIN 0.3 % (0-3); HCO3 (ACTUAL BICARBONATE) 24.3 MEQ/L (23-27); HEMOBLOGIN CONTENT 10.2 G/DL (14-18); INSTRUMENT SERIAL # 35151; METHEMOGLOBIN 0.7 % (0-3); O2 CONTENT 14.7 VOL% (18-24); PCO2 (CO2 TENSION) 55 MMHG (35-45); PO2 (O2 TENSION) 240 MMHG (79-93); pH 7.26 (7.37-7.43)
[2016-10-19 10:52] LABS: ALLENS TEST Pos; MODE CMV; OPERATOR ID 14382; SAMPLE Arterial; TIDAL VOLUME 550 ML
[2016-10-19 11:01] LABS: BASOPHILS 0.8 %; BASOPHILS ABSOLUTE 0.07 10/3/uL (0.0-0.16); EOSINOPHILS 0.6 %; EOSINOPHILS ABSOLUTE 0.05 10/3/uL (0.0-0.53); HEMATOCRIT 29.6 % (40.0-51.0); HEMOGLOBIN 9.3 g/dL (13.6-17.8); IMMATURE GRANULOCYTES 0.7 %; IMMATURE GRANULOCYTES ABSOLUTE 0.06 10/3/uL (0.0-0.11); LYMPHOCYTES 6.2 %; LYMPHOCYTES ABSOLUTE 0.54 10/3/uL (0.67-4.30); MEAN CORPUS HGB CONC 31.4 g/dL (32.0-36.0); MEAN CORPUSCULAR HEMOGLOB 28.7 pg (26.0-34.0); MEAN CORPUSCULAR VOLUME 91.4 fL (80-100); MONOCYTES 9.4 %; MONOCYTES ABSOLUTE 0.82 10/3/uL (0.21-1.20); NEUTROPHILS 82.3 %; NEUTROPHILS ABSOLUTE 7.18 10/3/uL (2.02-8.40); PLATELET COUNT 234 10/3/uL (150-400); RBC DISTRIBUTION WIDTH 15.7 % (12.0-16.0); RED CELL COUNT 3.24 10/6/uL (4.7-6.1); WHITE BLOOD CELLS 8.7 10/3/uL (4.5-10.5)
[2016-10-19 11:03] LABS: MANUAL DIFF NO %
[2016-10-19 11:17] LABS: ALBUMIN 3.3 G/DL (3.5-5.0); ALKALINE PHOSPHATASE 46 U/L (45-117); BUN (BLOOD UREA NITROGEN) 31 MG/DL (6-23); CALCIUM, SERUM 9.5 MG/DL (8.5-10.4); CHLORIDE, SERUM 114 MMOL/L (96-112); CO2 (CARBON DIOXIDE) 26 MMOL/L (24-34); CREATININE 1.94 MG/DL (0.70-1.30); GFR AFRICAN AMERICAN 37 ML/MIN (>=60); GFR NON AFRICAN AMERICAN 32 ML/MIN (>=60); GLOBULIN 3.4 G/DL (2.5-4.1); GLUCOSE, SERUM 139 MG/DL (60-99); POTASSIUM, SERUM 4.6 MMOL/L (3.5-5.3); SGOT(AST) 17 U/L (5-40); SGPT(ALT) 22 U/L (5-65); SODIUM, SERUM 147 MMOL/L (135-148); TOTAL BILIRUBIN 0.8 MG/DL (0-1.2); TOTAL PROTEIN 6.7 G/DL (6.0-8.5); TROPONIN I <0.02 NG/ML (<0.05)
[2016-10-19 13:00] LABS: PROCALCITONIN 0.1 ng/mL (<0.5)
[2016-10-19 14:13] LABS: TROPONIN I 0.04 NG/ML (<0.05)
[2016-10-19 18:20] LABS: ASCORBIC ACID (UR NOT ORDER) NEG (NEG); BILIRUBIN, URINE NEGATIVE (NEG); KETONE, URINE NEGATIVE (NEG); LEUKOCYTE ESTERASE(NOT OR TRACE (NEG); WBC (NOT ORDERED) (RFLEX) < 1 (0-5)
[2016-10-20 03:16] LABS: ALLENS TEST Pos; BE (BASE EXCESS) -2.9 MEQ/L (0 +/- 2.5); CARBOXYHEMOGLOBIN 0.3 % (0-3); HCO3 (ACTUAL BICARBONATE) 21.6 MEQ/L (23-27); HEMOBLOGIN CONTENT 10.9 G/DL (14-18); INSTRUMENT SERIAL # 35151; METHEMOGLOBIN 0.6 % (0-3); MODE CMV; O2 CONTENT 14.5 VOL% (18-24); OPERATOR ID 13744; PCO2 (CO2 TENSION) 37 MMHG (35-45); PO2 (O2 TENSION) 78 MMHG (79-93); SAMPLE Arterial; TIDAL VOLUME 550 ML; pH 7.39 (7.37-7.43)
[2016-10-20 05:03] LABS: HEMATOCRIT 28.8 % (40.0-51.0); HEMOGLOBIN 9.2 g/dL (13.6-17.8); MEAN CORPUS HGB CONC 31.9 g/dL (32.0-36.0); MEAN CORPUSCULAR HEMOGLOB 28.7 pg (26.0-34.0); MEAN CORPUSCULAR VOLUME 89.7 fL (80-100); MEAN PLATELET VOLUME 10.8 fL (9.2-13.0); PLATELET COUNT 245 10/3/uL (150-400); RBC DISTRIBUTION WIDTH 15.7 % (12.0-16.0); RED CELL COUNT 3.21 10/6/uL (4.7-6.1); WHITE BLOOD CELLS 7.8 10/3/uL (4.5-10.5)
[2016-10-20 05:04] LABS: MANUAL DIFF YES %; PARTIAL THROMBO TIME 64.2 SEC (22.5-37.2)
[2016-10-20 05:31] LABS: ALBUMIN 2.9 G/DL (3.5-5.0); BUN (BLOOD UREA NITROGEN) 31 MG/DL (6-23); CALCIUM, SERUM 9.1 MG/DL (8.5-10.4); CHLORIDE, SERUM 115 MMOL/L (96-112); CO2 (CARBON DIOXIDE) 23 MMOL/L (24-34); CREATININE 1.79 MG/DL (0.70-1.30); GFR AFRICAN AMERICAN 40 ML/MIN (>=60); GFR NON AFRICAN AMERICAN 35 ML/MIN (>=60); GLUCOSE, SERUM 157 MG/DL (60-99); PHOSPHORUS, SERUM 2.9 MG/DL (2.5-4.5); POTASSIUM, SERUM 4.8 MMOL/L (3.5-5.3); SODIUM, SERUM 149 MMOL/L (135-148)
[2016-10-20 05:55] LABS: LYMPHOCYTES 3 %; LYMPHOCYTES ABSOLUTE (CALC) 0.23 10/3/uL (0.67-4.30); MONOCYTES 4 %; MONOCYTES ABSOLUTE (CALC) 0.31 10/3/uL (0.21-1.20); NEUTROPHILS ABSOLUTE (CALC) 7.25 10/3/uL (2.02-8.40); SEGMENTED NEUTROPHIL (0) 93 %; TOTAL NUCLEATED CELLS 100
[2016-10-20 05:56] LABS: PLATELET ESTIMATE ADQ (ADEQUATE); RBC MORPHOLOGY NORM (NORMAL)
[2016-10-20 06:02] LABS: DILANTIN (PHENYTOIN) 9.4 MCG/ML (10.0-20.0)
[2016-10-20 06:09] LABS: DIGOXIN 2.3 NG/ML (0.8-2.0); TROPONIN I 0.06 NG/ML (<0.05)
[2016-10-20 08:12] LABS: ALLENS TEST Pos; BE (BASE EXCESS) -4.5 MEQ/L (0 +/- 2.5); CARBOXYHEMOGLOBIN 0.3 % (0-3); DEVICE NRB; HCO3 (ACTUAL BICARBONATE) 25.4 MEQ/L (23-27); INSTRUMENT SERIAL # 35151; METHEMOGLOBIN 0.6 % (0-3); O2 CONTENT 13.7 VOL% (18-24); OPERATOR ID 32199; PCO2 (CO2 TENSION) 75 MMHG (35-45); PO2 (O2 TENSION) 72 MMHG (79-93); SAMPLE Arterial; pH 7.15 (7.37-7.43)
[2016-10-21 04:35] LABS: ALLENS TEST Pos; BE (BASE EXCESS) -2.4 MEQ/L (0 +/- 2.5); CARBOXYHEMOGLOBIN 0.3 % (0-3); HCO3 (ACTUAL BICARBONATE) 21.9 MEQ/L (23-27); HEMOBLOGIN CONTENT 11.7 G/DL (14-18); INSTRUMENT SERIAL # 35151; METHEMOGLOBIN 0.6 % (0-3); MODE CMV; PCO2 (CO2 TENSION) 36 MMHG (35-45); PO2 (O2 TENSION) 102 MMHG (79-93); SAMPLE Arterial; TIDAL VOLUME 550 ML
[2016-10-21 06:41] LABS: BASOPHILS 0.1 %; BASOPHILS ABSOLUTE 0.01 10/3/uL (0.0-0.16); EOSINOPHILS 0.1 %; EOSINOPHILS ABSOLUTE 0.01 10/3/uL (0.0-0.53); HEMATOCRIT 27.9 % (40.0-51.0); IMMATURE GRANULOCYTES 0.3 %; IMMATURE GRANULOCYTES ABSOLUTE 0.03 10/3/uL (0.0-0.11); LYMPHOCYTES ABSOLUTE 0.57 10/3/uL (0.67-4.30); MEAN CORPUS HGB CONC 32.3 g/dL (32.0-36.0); MEAN CORPUSCULAR HEMOGLOB 28.6 pg (26.0-34.0); MEAN CORPUSCULAR VOLUME 88.6 fL (80-100); MEAN PLATELET VOLUME 10.5 fL (9.2-13.0); MONOCYTES 6.4 %; MONOCYTES ABSOLUTE 0.61 10/3/uL (0.21-1.20); NEUTROPHILS 87.1 %; NEUTROPHILS ABSOLUTE 8.26 10/3/uL (2.02-8.40); PLATELET COUNT 259 10/3/uL (150-400); RBC DISTRIBUTION WIDTH 15.9 % (12.0-16.0); RED CELL COUNT 3.15 10/6/uL (4.7-6.1); WHITE BLOOD CELLS 9.5 10/3/uL (4.5-10.5)
[2016-10-21 06:45] LABS: MANUAL DIFF NO %
[2016-10-21 07:06] LABS: ALBUMIN 2.9 G/DL (3.5-5.0); CALCIUM, SERUM 8.9 MG/DL (8.5-10.4); CHLORIDE, SERUM 111 MMOL/L (96-112); CO2 (CARBON DIOXIDE) 26 MMOL/L (24-34); CREATININE 1.95 MG/DL (0.70-1.30); DIGOXIN 1.3 NG/ML (0.8-2.0); GFR AFRICAN AMERICAN 36 ML/MIN (>=60); GFR NON AFRICAN AMERICAN 31 ML/MIN (>=60); GLUCOSE, SERUM 146 MG/DL (60-99); PHOSPHORUS, SERUM 2.9 MG/DL (2.5-4.5); SODIUM, SERUM 145 MMOL/L (135-148)
[2016-10-21 07:11] LABS: BUN (BLOOD UREA NITROGEN) 36 MG/DL (6-23); POTASSIUM, SERUM 3.8 MMOL/L (3.5-5.3)
[2016-10-21 08:05] LABS: PROCALCITONIN 0.16 ng/mL (<0.5)
[2016-10-21 11:51] LABS: B NATRIURETIC PEPTIDE (BNP) 475.9 PG/ML (< 100.0)
[2016-10-22 04:14] LABS: ALLENS TEST Pos; BE (BASE EXCESS) -0.7 MEQ/L (0 +/- 2.5); CARBOXYHEMOGLOBIN 0.3 % (0-3); INSTRUMENT SERIAL # 35151; METHEMOGLOBIN 0.5 % (0-3); MODE CMV; O2 CONTENT 13.6 VOL% (18-24); OPERATOR ID 23712; PCO2 (CO2 TENSION) 40 MMHG (35-45); PO2 (O2 TENSION) 95 MMHG (79-93); SAMPLE Arterial; TIDAL VOLUME 550 ML
[2016-10-22 05:28] LABS: BASOPHILS 0.1 %; BASOPHILS ABSOLUTE 0.01 10/3/uL (0.0-0.16); EOSINOPHILS 0 %; HEMATOCRIT 29.4 % (40.0-51.0); IMMATURE GRANULOCYTES 0.2 %; IMMATURE GRANULOCYTES ABSOLUTE 0.02 10/3/uL (0.0-0.11); LYMPHOCYTES 7.7 %; LYMPHOCYTES ABSOLUTE 0.68 10/3/uL (0.67-4.30); MEAN CORPUSCULAR HEMOGLOB 27.2 pg (26.0-34.0); MEAN CORPUSCULAR VOLUME 88.8 fL (80-100); MEAN PLATELET VOLUME 10.9 fL (9.2-13.0); MONOCYTES 5.7 %; NEUTROPHILS 86.3 %; NEUTROPHILS ABSOLUTE 7.58 10/3/uL (2.02-8.40); PLATELET COUNT 259 10/3/uL (150-400); RBC DISTRIBUTION WIDTH 16.4 % (12.0-16.0); RED CELL COUNT 3.31 10/6/uL (4.7-6.1); WHITE BLOOD CELLS 8.8 10/3/uL (4.5-10.5)
[2016-10-22 05:32] LABS: MANUAL DIFF NO %; MEAN CORPUS HGB CONC 30.6 g/dL (32.0-36.0)
[2016-10-22 07:53] LABS: BUN (BLOOD UREA NITROGEN) 40 MG/DL (6-23); CALCIUM, SERUM 8.1 MG/DL (8.5-10.4); CHLORIDE, SERUM 107 MMOL/L (96-112); CO2 (CARBON DIOXIDE) 24 MMOL/L (24-34); CREATININE 1.96 MG/DL (0.70-1.30); FREE T4 0.87 NG/DL (0.76-1.46); GFR AFRICAN AMERICAN 36 ML/MIN (>=60); GFR NON AFRICAN AMERICAN 31 ML/MIN (>=60); GLUCOSE, SERUM 147 MG/DL (60-99); PHOSPHORUS, SERUM 3.4 MG/DL (2.5-4.5); POTASSIUM, SERUM 3.4 MMOL/L (3.5-5.3); SODIUM, SERUM 144 MMOL/L (135-148)
[2016-10-22 08:04] LABS: C-REACTIVE PROTEIN 21.3 MG/L (<8.0)
[2016-10-23 04:12] LABS: BASOPHILS 0.1 %; BASOPHILS ABSOLUTE 0.01 10/3/uL (0.0-0.16); EOSINOPHILS 0 %; HEMATOCRIT 28.6 % (40.0-51.0); HEMOGLOBIN 8.9 g/dL (13.6-17.8); IMMATURE GRANULOCYTES 0.7 %; IMMATURE GRANULOCYTES ABSOLUTE 0.05 10/3/uL (0.0-0.11); LYMPHOCYTES ABSOLUTE 0.59 10/3/uL (0.67-4.30); MEAN CORPUS HGB CONC 31.1 g/dL (32.0-36.0); MEAN CORPUSCULAR HEMOGLOB 27.1 pg (26.0-34.0); MEAN CORPUSCULAR VOLUME 87.2 fL (80-100); MEAN PLATELET VOLUME 10.6 fL (9.2-13.0); MONOCYTES 6.2 %; MONOCYTES ABSOLUTE 0.46 10/3/uL (0.21-1.20); NEUTROPHILS ABSOLUTE 6.26 10/3/uL (2.02-8.40); PLATELET COUNT 239 10/3/uL (150-400); RBC DISTRIBUTION WIDTH 16.5 % (12.0-16.0); RED CELL COUNT 3.28 10/6/uL (4.7-6.1); WHITE BLOOD CELLS 7.4 10/3/uL (4.5-10.5)
[2016-10-23 04:13] LABS: MANUAL DIFF NO %
[2016-10-23 04:24] LABS: BUN (BLOOD UREA NITROGEN) 38 MG/DL (6-23); CALCIUM, SERUM 8.2 MG/DL (8.5-10.4); CHLORIDE, SERUM 109 MMOL/L (96-112); CO2 (CARBON DIOXIDE) 26 MMOL/L (24-34); CREATININE 1.62 MG/DL (0.70-1.30); GFR AFRICAN AMERICAN 45 ML/MIN (>=60); GFR NON AFRICAN AMERICAN 39 ML/MIN (>=60); GLUCOSE, SERUM 132 MG/DL (60-99); PHOSPHORUS, SERUM 4.1 MG/DL (2.5-4.5); SODIUM, SERUM 147 MMOL/L (135-148)
[2016-10-23 04:25] LABS: POTASSIUM, SERUM 4.5 MMOL/L (3.5-5.3)
[2016-10-23 06:00] LABS: INTERNATIONAL NORMAL RATI 1.3 UNITS (-); PROTIME (NOT ORD) 15.7 SEC (12.0-14.5)
[2016-10-23 06:01] LABS: PARTIAL THROMBO TIME 86.6 SEC (22.5-37.2)
[2016-10-24 06:37] LABS: BASOPHILS 0.1 %; BASOPHILS ABSOLUTE 0.01 10/3/uL (0.0-0.16); EOSINOPHILS 0.1 %; EOSINOPHILS ABSOLUTE 0.01 10/3/uL (0.0-0.53); HEMATOCRIT 29.3 % (40.0-51.0); HEMOGLOBIN 9.2 g/dL (13.6-17.8); IMMATURE GRANULOCYTES 0.8 %; IMMATURE GRANULOCYTES ABSOLUTE 0.06 10/3/uL (0.0-0.11); LYMPHOCYTES 11.3 %; LYMPHOCYTES ABSOLUTE 0.81 10/3/uL (0.67-4.30); MEAN CORPUS HGB CONC 31.4 g/dL (32.0-36.0); MEAN CORPUSCULAR HEMOGLOB 27.5 pg (26.0-34.0); MEAN CORPUSCULAR VOLUME 87.7 fL (80-100); MEAN PLATELET VOLUME 10.3 fL (9.2-13.0); MONOCYTES 8.6 %; MONOCYTES ABSOLUTE 0.62 10/3/uL (0.21-1.20); NEUTROPHILS 79.1 %; NEUTROPHILS ABSOLUTE 5.66 10/3/uL (2.02-8.40); PLATELET COUNT 256 10/3/uL (150-400); RBC DISTRIBUTION WIDTH 16.7 % (12.0-16.0); RED CELL COUNT 3.34 10/6/uL (4.7-6.1); WHITE BLOOD CELLS 7.2 10/3/uL (4.5-10.5)
[2016-10-24 06:38] LABS: INTERNATIONAL NORMAL RATI 1.6 UNITS (-); PARTIAL THROMBO TIME 30.3 SEC (22.5-37.2); PROTIME (NOT ORD) 18.5 SEC (12.0-14.5)
[2016-10-24 06:41] LABS: MANUAL DIFF NO %
[2016-10-24 07:03] LABS: BUN (BLOOD UREA NITROGEN) 38 MG/DL (6-23); CALCIUM, SERUM 8.6 MG/DL (8.5-10.4); CHLORIDE, SERUM 109 MMOL/L (96-112); CO2 (CARBON DIOXIDE) 29 MMOL/L (24-34); CREATININE 1.68 MG/DL (0.70-1.30); GFR AFRICAN AMERICAN 43 ML/MIN (>=60); GFR NON AFRICAN AMERICAN 38 ML/MIN (>=60); GLUCOSE, SERUM 108 MG/DL (60-99); PHOSPHORUS, SERUM 3.8 MG/DL (2.5-4.5); POTASSIUM, SERUM 4.4 MMOL/L (3.5-5.3); SODIUM, SERUM 147 MMOL/L (135-148)
[2016-10-25 05:33] LABS: BASOPHILS 0.2 %; BASOPHILS ABSOLUTE 0.01 10/3/uL (0.0-0.16); EOSINOPHILS 0.3 %; EOSINOPHILS ABSOLUTE 0.02 10/3/uL (0.0-0.53); HEMATOCRIT 30.6 % (40.0-51.0); HEMOGLOBIN 9.5 g/dL (13.6-17.8); IMMATURE GRANULOCYTES 0.8 %; IMMATURE GRANULOCYTES ABSOLUTE 0.05 10/3/uL (0.0-0.11); LYMPHOCYTES ABSOLUTE 0.73 10/3/uL (0.67-4.30); MEAN CORPUSCULAR HEMOGLOB 28.4 pg (26.0-34.0); MEAN PLATELET VOLUME 10.7 fL (9.2-13.0); MONOCYTES 7.4 %; MONOCYTES ABSOLUTE 0.45 10/3/uL (0.21-1.20); NEUTROPHILS 79.3 %; PLATELET COUNT 232 10/3/uL (150-400); RBC DISTRIBUTION WIDTH 16.6 % (12.0-16.0); RED CELL COUNT 3.34 10/6/uL (4.7-6.1); WHITE BLOOD CELLS 6.1 10/3/uL (4.5-10.5)
[2016-10-25 05:35] LABS: MANUAL DIFF NO %; MEAN CORPUSCULAR VOLUME 91.6 fL (80-100)
[2016-10-25 05:56] LABS: BUN (BLOOD UREA NITROGEN) 39 MG/DL (6-23); CALCIUM, SERUM 8.5 MG/DL (8.5-10.4); CHLORIDE, SERUM 111 MMOL/L (96-112); CO2 (CARBON DIOXIDE) 24 MMOL/L (24-34); GFR AFRICAN AMERICAN 46 ML/MIN (>=60); GFR NON AFRICAN AMERICAN 40 ML/MIN (>=60); GLUCOSE, SERUM 125 MG/DL (60-99); POTASSIUM, SERUM 4.8 MMOL/L (3.5-5.3); SODIUM, SERUM 145 MMOL/L (135-148)
[2016-10-27 03:48] LABS: BASOPHILS 0.1 %; BASOPHILS ABSOLUTE 0.01 10/3/uL (0.0-0.16); EOSINOPHILS 0.7 %; EOSINOPHILS ABSOLUTE 0.05 10/3/uL (0.0-0.53); HEMATOCRIT 31.6 % (40.0-51.0); HEMOGLOBIN 9.9 g/dL (13.6-17.8); IMMATURE GRANULOCYTES 0.5 %; IMMATURE GRANULOCYTES ABSOLUTE 0.04 10/3/uL (0.0-0.11); LYMPHOCYTES 12.9 %; LYMPHOCYTES ABSOLUTE 0.99 10/3/uL (0.67-4.30); MEAN CORPUS HGB CONC 31.3 g/dL (32.0-36.0); MEAN CORPUSCULAR HEMOGLOB 28.6 pg (26.0-34.0); MEAN CORPUSCULAR VOLUME 91.3 fL (80-100); MEAN PLATELET VOLUME 10.4 fL (9.2-13.0); MONOCYTES 8.1 %; MONOCYTES ABSOLUTE 0.62 10/3/uL (0.21-1.20); NEUTROPHILS 77.7 %; NEUTROPHILS ABSOLUTE 5.95 10/3/uL (2.02-8.40); PLATELET COUNT 269 10/3/uL (150-400); RBC DISTRIBUTION WIDTH 16.4 % (12.0-16.0); RED CELL COUNT 3.46 10/6/uL (4.7-6.1); WHITE BLOOD CELLS 7.7 10/3/uL (4.5-10.5)
[2016-10-27 03:50] LABS: MANUAL DIFF NO %
[2016-10-27 04:00] LABS: BUN (BLOOD UREA NITROGEN) 31 MG/DL (6-23); CALCIUM, SERUM 8.8 MG/DL (8.5-10.4); CHLORIDE, SERUM 106 MMOL/L (96-112); CO2 (CARBON DIOXIDE) 33 MMOL/L (24-34); CREATININE 1.51 MG/DL (0.70-1.30); GFR AFRICAN AMERICAN 49 ML/MIN (>=60); GFR NON AFRICAN AMERICAN 42 ML/MIN (>=60); GLUCOSE, SERUM 119 MG/DL (60-99); POTASSIUM, SERUM 4.3 MMOL/L (3.5-5.3); SODIUM, SERUM 145 MMOL/L (135-148)
[2016-10-28 05:06] LABS: BASOPHILS 0.3 %; BASOPHILS ABSOLUTE 0.02 10/3/uL (0.0-0.16); EOSINOPHILS 1.7 %; EOSINOPHILS ABSOLUTE 0.13 10/3/uL (0.0-0.53); HEMATOCRIT 32.8 % (40.0-51.0); HEMOGLOBIN 10.2 g/dL (13.6-17.8); IMMATURE GRANULOCYTES 0.4 %; IMMATURE GRANULOCYTES ABSOLUTE 0.03 10/3/uL (0.0-0.11); LYMPHOCYTES 15.1 %; LYMPHOCYTES ABSOLUTE 1.16 10/3/uL (0.67-4.30); MEAN CORPUS HGB CONC 31.1 g/dL (32.0-36.0); MEAN CORPUSCULAR HEMOGLOB 28.6 pg (26.0-34.0); MEAN CORPUSCULAR VOLUME 91.9 fL (80-100); MEAN PLATELET VOLUME 10.3 fL (9.2-13.0); MONOCYTES 17.4 %; MONOCYTES ABSOLUTE 1.34 10/3/uL (0.21-1.20); NEUTROPHILS 65.1 %; NEUTROPHILS ABSOLUTE 5.01 10/3/uL (2.02-8.40); PLATELET COUNT 267 10/3/uL (150-400); RBC DISTRIBUTION WIDTH 16.5 % (12.0-16.0); RED CELL COUNT 3.57 10/6/uL (4.7-6.1); WHITE BLOOD CELLS 7.7 10/3/uL (4.5-10.5)
[2016-10-28 05:07] LABS: MANUAL DIFF NO %
[2016-10-28 05:30] LABS: ALBUMIN 3.3 G/DL (3.5-5.0); BUN (BLOOD UREA NITROGEN) 32 MG/DL (6-23); CALCIUM, SERUM 9.1 MG/DL (8.5-10.4); CHLORIDE, SERUM 105 MMOL/L (96-112); CO2 (CARBON DIOXIDE) 31 MMOL/L (24-34); GFR AFRICAN AMERICAN 46 ML/MIN (>=60); GFR NON AFRICAN AMERICAN 40 ML/MIN (>=60); GLUCOSE, SERUM 105 MG/DL (60-99); SODIUM, SERUM 144 MMOL/L (135-148)
[2016-10-28 05:36] LABS: DIGOXIN 1.2 NG/ML (0.8-2.0); PHOSPHORUS, SERUM 2.6 MG/DL (2.5-4.5)
[2016-10-29 05:01] LABS: BASOPHILS 0.3 %; BASOPHILS ABSOLUTE 0.02 10/3/uL (0.0-0.16); EOSINOPHILS 1.7 %; EOSINOPHILS ABSOLUTE 0.12 10/3/uL (0.0-0.53); HEMATOCRIT 31.3 % (40.0-51.0); HEMOGLOBIN 9.6 g/dL (13.6-17.8); IMMATURE GRANULOCYTES 0.6 %; IMMATURE GRANULOCYTES ABSOLUTE 0.04 10/3/uL (0.0-0.11); LYMPHOCYTES ABSOLUTE 1.15 10/3/uL (0.67-4.30); MEAN CORPUS HGB CONC 30.7 g/dL (32.0-36.0); MEAN CORPUSCULAR HEMOGLOB 27.9 pg (26.0-34.0); MEAN PLATELET VOLUME 10.5 fL (9.2-13.0); MONOCYTES 18.9 %; MONOCYTES ABSOLUTE 1.36 10/3/uL (0.21-1.20); NEUTROPHILS 62.5 %; NEUTROPHILS ABSOLUTE 4.51 10/3/uL (2.02-8.40); PLATELET COUNT 250 10/3/uL (150-400); RBC DISTRIBUTION WIDTH 16.7 % (12.0-16.0); RED CELL COUNT 3.44 10/6/uL (4.7-6.1); WHITE BLOOD CELLS 7.2 10/3/uL (4.5-10.5)
[2016-10-29 05:08] LABS: MANUAL DIFF NO %
[2016-10-29 05:33] LABS: BUN (BLOOD UREA NITROGEN) 35 MG/DL (6-23); CALCIUM, SERUM 9.2 MG/DL (8.5-10.4); CHLORIDE, SERUM 103 MMOL/L (96-112); CO2 (CARBON DIOXIDE) 33 MMOL/L (24-34); CREATININE 1.64 MG/DL (0.70-1.30); GFR AFRICAN AMERICAN 44 ML/MIN (>=60); GFR NON AFRICAN AMERICAN 38 ML/MIN (>=60); GLUCOSE, SERUM 108 MG/DL (60-99); SODIUM, SERUM 143 MMOL/L (135-148)
[2016-10-29 16:34] LABS: ALLENS TEST Pos; BE (BASE EXCESS) 9.1 MEQ/L (0 +/- 2.5); CARBOXYHEMOGLOBIN 0.3 % (0-3); DEVICE NC; HCO3 (ACTUAL BICARBONATE) 35.3 MEQ/L (23-27); HEMOBLOGIN CONTENT 10.8 G/DL (14-18); INSTRUMENT SERIAL # 35151; METHEMOGLOBIN 0.5 % (0-3); O2 CONTENT 14.3 VOL% (18-24); OPERATOR ID 13624; PCO2 (CO2 TENSION) 57 MMHG (35-45); PO2 (O2 TENSION) 73 MMHG (79-93); SAMPLE Arterial; pH 7.41 (7.37-7.43)
[2016-10-29 17:42] LABS: BUN (BLOOD UREA NITROGEN) 32 MG/DL (6-23); CALCIUM, SERUM 8.9 MG/DL (8.5-10.4); CHLORIDE, SERUM 102 MMOL/L (96-112); CO2 (CARBON DIOXIDE) 34 MMOL/L (24-34); CREATININE 1.68 MG/DL (0.70-1.30); GFR AFRICAN AMERICAN 43 ML/MIN (>=60); GFR NON AFRICAN AMERICAN 37 ML/MIN (>=60); GLUCOSE, SERUM 105 MG/DL (60-99); POTASSIUM, SERUM 4.3 MMOL/L (3.5-5.3); SODIUM, SERUM 144 MMOL/L (135-148)
== END 2016-10-30 16:36 | DRG 870 ==
LOC: ER 15:56 → IMCU 22:15 → MIC 10-07 04:17 → 7NO 10-13 19:23 → CCU 10-19 09:56 → 5NO 10-23 21:50
PROVIDERS: Emergency Medicine; Hospitalist; Internal Medicine; Internal Medicine Critical Care Medicine; Internal Medicine Infectious Disease; Internal Medicine Nephrology; Internal Medicine Pulmonary Disease; Nurse Practitioner; Psychiatry & Neurology Neurology
PROC: 05H633Z Insertion of Infusion Device into Left Subclavian Vein, Percutaneous Approach (ICD-10-PCS; principal; 2016-10-05)
PROC: 5A1955Z Respiratory Ventilation, Greater than 96 Consecutive Hours (ICD-10-PCS; 2016-10-07)
PROC: 0BH17EZ Insertion of Endotracheal Airway into Trachea, Via Natural or Artificial Opening (ICD-10-PCS; 2016-10-07)
PROC: 5A2204Z Restoration of Cardiac Rhythm, Single (ICD-10-PCS; 2016-10-07)
PROC: 009U3ZX Drainage of Spinal Canal, Percutaneous Approach, Diagnostic (ICD-10-PCS; 2016-10-07)
PROC: 0BH17EZ Insertion of Endotracheal Airway into Trachea, Via Natural or Artificial Opening (ICD-10-PCS; 2016-10-19)
PROC: 5A1955Z Respiratory Ventilation, Greater than 96 Consecutive Hours (ICD-10-PCS; 2016-10-19)
DX: A41.89 Other specified sepsis (principal); N17.0 Acute kidney failure with tubular necrosis; I21.4 Non-ST elevation (NSTEMI) myocardial infarction; R65.21 Severe sepsis with septic shock; J96.01 Acute respiratory failure with hypoxia; J96.02 Acute respiratory failure with hypercapnia; J15.4 Pneumonia due to other streptococci; I47.2 Ventricular tachycardia; G93.41 Metabolic encephalopathy; I50.33 Acute on chronic diastolic (congestive) heart failure; N18.3 Chronic kidney disease, stage 3 (moderate); I13.0 Hypertensive heart and chronic kidney disease with heart failure and stage 1 through stage 4 chronic kidney disease, or unspecified chronic kidney disease; F03.91 Unspecified dementia, unspecified severity, with behavioral disturbance; J98.11 Atelectasis; E27.40 Unspecified adrenocortical insufficiency; I48.0 Paroxysmal atrial fibrillation; Z86.73 Personal history of transient ischemic attack (TIA), and cerebral infarction without residual deficits; N40.0 Benign prostatic hyperplasia without lower urinary tract symptoms; K21.9 Gastro-esophageal reflux disease without esophagitis; K27.9 Peptic ulcer, site unspecified, unspecified as acute or chronic, without hemorrhage or perforation; G20 Parkinson's disease; Z87.440 Personal history of urinary (tract) infections; Z90.49 Acquired absence of other specified parts of digestive tract; Z98.890 Other specified postprocedural states; Z87.891 Personal history of nicotine dependence; J10.1 Influenza due to other identified influenza virus with other respiratory manifestations; G40.909 Epilepsy, unspecified, not intractable, without status epilepticus; E66.9 Obesity, unspecified; Z68.33 Body mass index [BMI] 33.0-33.9, adult; G25.0 Essential tremor
CPT/HCPCS: 31720; 36569; 36600; 62270; 70450; 70470; 70551; 71010; 74000; 74176; 77003; 80048; 80053; 80069; 80076; 80162; 80185; 80202; 81001; 82140; 82306; 82330; 82533; 82550; 82553; 82570; 82607; 82746; 82803; 82805; 82945; 82947; 82962; 83605; 83690; 83735; 83880; 84100; 84132; 84134; 84145; 84157; 84295; 84300; 84439; 84443; 84484; 84540; 85014; 85025; 85610; 85652; 85730; 86140; 87040; 87070; 87077; 87186; 87205; 87327; 87529; 87529-59; 87641; 87804; 89051; 92610-GN; 92950; 93005; 93880; 94002; 94003; 94640; 94660; 94770; 95816; 96374; 97110-GP; 97162-GP; 97530-GP; 99285; A9270-GY; C1751; C8929; C9113; C9254; G8978-CM-GP; G8979-CM-GP; G8996-CJ-GN; G8996-CN-GN; G8997-CJ-GN; G8997-CN-GN; G8998-CJ-GN; G8998-CN-GN; J0133; J0153; J0282; J0360; J1160; J1720; J1953; J2250; J2370; J2405; J2543; J2930; J3010; J3370; P9047; Q2009; Q9957